=== PATIENT | male | born 1970 | race Caucasian/White ===

== ENCOUNTER → 2022-03-15 | Outpatient (CLI) | payer SELFPAY | END | disposition home or self-care (01) | LOC: SL 11:54 | PROVIDERS: Visit Provider Psychiatry & Neurology Neurology | DX: R69 Illness, unspecified (principal) ==

== ENCOUNTER 2025-04-25 20:44 | Inpatient (IN) | payer OTHER, SELFPAY ==
[2025-04-25 20:45] VITALS: BP 118/82; PULSE 99; RESP 16; TEMP 37.1; O2SAT 95; BMI 31.5
[2025-04-25 22:08] LABS: Hematocrit 42.0 % (40-54); Hemoglobin 14.8 g/dL (13.0-16.5); Immature Granulocytes Count 0.040 X10^3/uL (0.0-0.0); Mean Corp Hgb Conc 35.2 g/dL (32-36); Mean Corpuscular Volume 94.2 fL (80-94); Mean Platelet Vol. 10.1 fl (6.2-12.0); NRBC Flagged by Analyzer 0 % (0-5); Platelet Count 187 K/mm3 (150-450); RBC Distribution Width CV 12.3 % (11.6-14.6); RBC Distribution Width SD 42.7 fl (35.1-43.9); Red Blood Count 4.46 M/mm3 (4.6-6.2); White Blood Count 11.9 K/mm3 (4.4-11.0)
[2025-04-25 22:45] VITALS: BP 130/83; PULSE 84; RESP 18; O2SAT 93
[2025-04-25 22:53] LABS: AST(SGOT) 42 U/L (<=37); Alanine Aminotransfer ALT/SGPT 67 U/L (<=46); Albumin, Serum 4.3 g/dL (3.5-5.0); Alkaline Phosphatase 101 U/L (40-129); Anion Gap 14 (5-15); BUN 13 mg/dL (4-19); BUN/Creat Ratio 13.3 RATIO (10-20); Calcium,Total 9.6 mg/dL (7.6-11.0); Carbon Dioxide 21.4 mmol/L (21.0-32.0); Chloride 99 mmol/L (98-108); Estimated Creatinine Clearance 100.55 ml/min (50-250); Globulin 3.5 g/dL (2.2-4.2); Glucose 95 mg/dL (70-99); Lipase 14 U/L (13-75); Potassium 3.7 mmol/L (3.3-5.1)
--- NOTE | 2025-04-25 23:06 | EX.ED.DYSGE1 ---
HPI History of Present Illness Chief Complaint: Abd Pain Narrative Narrative: Chief complaint and HPI: Diverticulitis. 54-year-old male with no significant past medical history presents for evaluation of microperforated diverticulitis. Patient states for the past week he has been having left lower quadrant abdominal pain. Associated symptom is diarrhea and decreased appetite. Had an outpatient CT performed with his PCP. Showed diverticulitis with microperforation. No abscess. Patient was sent to emergency department. He denies any fever, chills, nausea, vomiting. States his abdominal pain is currently minimal. Review of systems: See HPI Medications: As listed on the chart Allergies: As listed on the chart PFSH: Per chart Vital signs: As listed on the chart. Reviewed. Physical exam: Gen: A&O x3, NAD Head: Normocephalic, atraumatic Eyes: No sclera icterus, conjunctiva clear ENT: Moist mucous membranes Neck: Trachea midline, No JVD CV: RRR, no murmurs, no peripheral edema Resp: Lungs CTA BL, no w/r/c GI: Abd soft, non-distended, mildly tender to palpation in the left lower quadrant, no r/r/g Musc: Full ROM, no deformity Skin: Warm, dry Neuro: Alert, oriented, grossly intact, sensation intact Psych: Cooperative, appropriate mood and affect [facility] Medical History (Updated 04/25/25 @ 22:22 by Nan Louis) UTI (urinary tract infection) CVA (cerebral vascular accident) Diverticulitis Home Medications ?Medication ?Instructions ?Recorded ?Last Taken ?Type aspirin 25 mg-dipyridamole 200 mg 1 cap PO BID 04/25/25 Unknown History capsule,ext.release 12 hr multiphase Allergy/AdvReac Type Severity Reaction Status Date / Time No Known Allergies Allergy Verified 04/25/25 20:45 Surgical History no surgical history Social History Smoking Status: Never smoker EXAM Physical Exam Const Vital Signs: 04/25/25 20:45 04/25/25 22:45 Temperature 98.7 F Temperature Source Oral Pulse Rate 99 84 Respiratory Rate 16 18 Blood Pressure 118/82 H 130/83 H Blood Pressure Mean 94 98 Pulse Ox 95 93 Oxygen Delivery Method Room Air Room Air MDM MDM MDM Narrative Medical decision making narrative: 54-year-old male with no significant past medical history presents for evaluation of microperforated diverticulitis. Patient's been having left lower quadrant abdominal pain. States he had an outpatient CT that showed diverticulitis cyst with perforation without abscess. Patient's PCP did call and inform another ER provider that the patient was coming. On presentation, he is endorsing minimal abdominal pain. Patient did not come with a radiology disc although we were told that the images were pushed over. On chart review, I was able to see the imaging. Patient does have diverticulitis with a small area of subcutaneous air suggesting microperforation. This was personally reviewed by myself. NS bolus and Zofran ordered. CBC shows leukocytosis 11.9. No anemia. CMP unremarkable except for mild transaminitis. Patient not endorsing any right upper quadrant abdominal pain. Lipase unremarkable. General surgery consulted. I spoke with Dr. Gandara. Plan is to admit under his service. Patient was updated about the results and confirmed understanding of the plan. Impression: 1. Acute diverticulitis with microperforation 2. Mild transaminitis Lab Data Labs: Laboratory Results - last 24 hr 04/25/25 22:03 WBC 11.9 H RBC 4.46 L Hgb 14.8 Hct 42.0 MCV 94.2 H MCH 33.2 H MCHC 35.2 RDW Std Deviation 42.7 RDW Coeff of Mari 12.3 Plt Count 187 MPV 10.1 Immature Gran % (Auto) 0.300 Neut % (Auto) 73.6 H Lymph % (Auto) 16.4 L Frio % (Auto) 8.7 Eos % (Auto) 0.7 Baso % (Auto) 0.3 Absolute Neuts (auto) 8.7 H Absolute Lymphs (auto) 1.94 Nucleated RBC % 0 Sodium 134 Potassium 3.7 Chloride 99 Carbon Dioxide 21.4 Anion Gap 14 BUN 13 Creatinine 1.00 Estim Creat Clear Calc 100.55 Est GFR (MDRD) Non-Af 89 BUN/Creatinine Ratio 13.3 Glucose 95 Calcium 9.6 Total Bilirubin 0.89 AST 42 H ALT 67 H Alkaline Phosphatase 101 Total Protein 7.8 Albumin 4.3 Globulin 3.5 Albumin/Globulin Ratio 1.2 Lipase 14 Discharge Plan Triage Chief Complaint: Abd Pain ED Provider: Lavelle Tinajero Dx/Rx/DC Orders Prescriptions: No Action aspirin-dipyridamole 25-200 mg capsule, ER multiphase 12 hr 1 cap PO BID Primary Care Provider: Marjorie aSlinas Referrals: Marjorie Salinas, PA [Primary Care Provider] - Print Language: Chinese
--- OUTSIDE RECORDS SUMMARY | 2025-04-25 23:23 | XMS RPT_ITS | CCD ---
Author Organization [facility] Care Team Providers Care Psychological Stress Evaluator Name Role Phone DECLAN, DARIA PAC Admitting Unavailable DECLAN, DARIA PAC Primary Care Unavailable DECLAN, DARIA PAC Attending Unavailable BRADLEY, LAURA Attending Unavailable BRADLEY, LAURA Admitting Unavailable KIRK LAURA Primary Care Unavailable RYAN BASS Admitting Unavailable RYAN BASS Primary Care Unavailable RYAN BASS Attending Unavailable CSERNYIKNICHOLE DO Admitting Unavailable CSERNYIK NICHOLE DO Primary Care Unavailable CSENICHOLE GAN DO Attending Unavailable ELIOT GRECO DO Admitting Unavailable ELIOT GRECO DO Primary Care Unavailable ELIOT GRECO DO Attending Unavailable CHANTAL BARRIENTOS Consulting Unavailable PROVIDER, UNKNOWN Consulting Unavailable PROVIDER, UNKNOWN Consulting Unavailable PROVIDER, UNKNOWN Consulting Unavailable Jasper LEMUS, Zachary Bloom Unavailable Dr. Ryan Bass MD Unavailable Slim Manrique MD Unavailable Mar Ash LPN Unavailable Unavailable Gogoi (scribe), Hemanta Unavailable Unavaila Chantal Lopez MD Unavailable Judy Howe LPN Unavailable Unavailable Jc ALLEN, Mark Unavailable Unavailable Chanelersaugusto ALLEN, Ceci K Unavailable Unavai Marjorie Lamas PA-C Unavailable Marce Garduno LPN Unavailable Unavailab aneudy Ocasio LPN, Consuelo Lyons Unavailable Unavailab aneudy Talbert LPN, Radha Mayes Unavailable Unavaila ble Unavailable Unavailable Ashley Gonzalez LPN Unavailable Unavailabl e Medications Completed/Discontinued Medications Medication Drug Class(es) Dates Sig (Normalized) Sig (Original) 12 hr aspirin 25 mg / dipyridamole 200 mg extended release oral capsule (8 sources) Platelet Aggregation Inhibitor, Nonsteroidal Anti-inflammatory Drug Start: 01-11-2023 End: 04-25-2025 aspirin 25 mg-dipyridamole 200 mg capsule,ext.relea se 12 hr multiphase ; 1 (one) Capsule two times daily for 0 days Quantity: 60 {Capsule} Refills: 0 Ordered: 25-Apr-2025 Start: 11-Jan-2023 End: 25-Apr-2025 Status: Inactive Start: 01-11-2023 take 25-200 mg by mo [facility] every twelve hours Aspirin-Dipyridamole ER 25-200 MG Oral Capsule Extended Release 12 Hour ; 1 (one) Capsule two times daily for 0 days Quantity: 60 {Capsule} Refills: 0 Ordered: 11-Jan-2023 ALLAN Hutchinson Start: 11-Jan-2023 Comment on above: Mail order. cephalexin 500 mg oral capsule (4 sources) Cephalosporin Antibacterial Start: 11-25-19 End: 11-30-19 21 take 2 capsules by mouth twice daily Cephalexin 500 MG Oral Capsule ; 2 (two) Capsule two times daily for 5 days Quantity: 20 {Capsule} Refills: 0 Ordered: 25-Nov-2020 MD Chantal Barrientos Start: 25-Nov-2020 End: 30-Nov-2020 Status: Inactive ciprofloxacin 500 mg oral tablet (4 sources) Quinolone Antimicrobial Start: 10-30-19 24 End: 11-06-19 24 ciprofloxacin 500 mg tablet ; 1 (one) tablet BID for 7 days Quantity: 14 {Tablet} Refills: 0 Ordered: 30-Oct-2023 ALLNA Salinas Start: 30-Oct-2023 End: 06-Nov-2023 Status: Inactive simvastatin 10 mg oral tablet (4 sources) HMG-CoA Reductase Inhibitor ZOCOR, 10MG (Oral Tablet) ; (10 MG) Status: Inactive Problems Active Problems Problem Classification Problem Date Documented Date Episodic/Chronic Abdominal pain (4 sources) Left lower quadrant pain; Translations: [Left lower quadrant pain] 04-25-2025 Episodic Conditions associated with dizziness or vertigo (8 sources) Benign paroxysmal positional vertigo; Translations: [Benign paroxysmal vertigo, unspecified ear] 10-16-2023 Episodic Genitourinary symptoms and ill-defined conditions (8 sources) Urinary symptoms ; Translations: [Unspecified symptoms and signs involving the genitourinary system] 10-16-2023 Episodic Joint disorders and dislocations; trauma-related (3 sources) Anterior dislocation of left humerus, initial encounter; Translations: [Anterior dislocation of left humerus, initial encounter] Onset: 09-14-2022 Episodic Late effects of cerebrovascular disease (3 sources) Unspecified sequelae of cerebral infarction; Translations: [Unspecified sequelae of cerebral infarction] Onset: 12-27-2021 Chronic Open wounds of extremities (8 sources) Laceration of lower limb; Translations: [Laceration without foreign body, right lower leg, initial encounter] 10-16-2023 Episodic Osteoarthritis (12 sources) Osteoarthritis of knee; Translations: [Osteoarthritis of knee, unspecified] 10-16-2023 Chronic Other aftercare (8 sources) Drug indicated; Translations: [Other mcc (current) drug therapy] 05-28-2019 Episodic Other circulatory disease (8 sources) History of cerebrovascular accident; Translations: [Personal history of transient ischemic attack (TIA), and cerebral infarction without residual deficits] 01-11-2023 Episodic Other circulatory disease (8 sources) History of transient ischemic attack; Translations: [Personal history of transient ischemic attack (TIA), and cerebral infarction without residual deficits] 10-16-2023 Episodic Other nutritional; endocrine; and metabolic disorders (8 sources) Body mass index 30+ - obesity; Translations: [Body mass index (BMI) 30.0-30.9, adult] 10-16-2023 Chronic Other nutritional; endocrine; and metabolic disorders (8 sources) Overweight; Translations: [Overweight] 10-16-2023 Episodic Residual codes; unclassified (8 sources) Influenza vaccination declined; Translations: [Immunization not carried out because of patient refusal] 10-16-2023 Episodic Transient cerebral ischemia (20 sources) Transient cerebral ischemia; Translations: [Transient cerebral ischemic attack, unspecified] 10-16-2023 Chronic Unclassified (1 source) CONTACT WITH AND SUSPECTED EXPOSURE TO COVID-19; Translations: [CONTACT WITH AND SUSPECTED EXPOSURE TO COVID-19] Onset: 12-28-2021 Unclassified (4 sources) Follow up for chronic condition - The patient is here for follow-up of other condition(s) (TIA). The patient always takes the prescribed medications. No side effects noted. The patient has an active lifestyle but no regular exercise program. The patient's out of office blood pressure checks occur rarely. The patient states that they do not have headaches. The patient states that the disease has no overall impact. 01-11-2023 Unclassified (4 sources) Follow Up for Multiple Chronic Conditions - The patient is here for follow-up of other condition(s) (Transient Ischemic Attacks.). The patient always takes the prescribed medications. No side effects noted. The patient has an active lifestyle but no regular exercise program. The patient's out of office blood pressure checks occur rarely and dietary compliance is fair often eating foods not normally recommended. The patient states that there is no recent angina or dyspnea, there are no vision changes or weakness, weight has increased (up 2# from last visit. Last rtn exam was 2015.) and they do not have headaches. The patient states that the disease has no overall impact. Note for Multiple chronic conditions follow-up: He has a small PFO but no other etiology was found. He is maintained on agrrenox. 11-27-2017 Past or Other Problems Problem Classification Problem Date Documented Da te Episodic/Chronic Unclassified (4 sources) UTI - Symptoms include dysuria and urinary urgency. Onset was sudden 1 day(s) ago. There is no known event that preceded symptom onset. The symptoms occur constantly. The patient describes this as moderate in severity and worsening. Associated symptoms include fever. Note for UTI: Denies any cold symptoms. No back pain, no scrotal pain.No similar symptoms to this but has noticed changes in his urinary habits over the past year. 10-16-2023 Unclassified (4 sources) laceration - pt cut his right thigh today- around 1:30 pmpt was using a saw to cut cardboard and it just hit his legpt says its not painful just stings a little 11-25-2020 Unclassified (4 sources) wants check up - pt had headache and dizzy spell about a week, week and a half ago pt states it lasted a couple minutes - no symptoms now but did have a headache for a few daysbut with his history of stroke he wants checked outpt may also want referral for a new nuerologist 05-28-2019 Unclassified (4 sources) [facility] Routine Follow up - The patient is here for follow-up of TIA (Last rtn visit 07/27/15. No recent labs.). The patient always takes the prescribed medications. No side effects noted. The patient engages in regular program 1-3 time(s) per week. The patient's out of office blood pressure checks occur rarely and dietary compliance is fairly good usually adhering to recommendations. The patient states that breathing effort is stable, there is no recent angina or dyspnea, there are no vision changes or weakness, pain is worse (right knee pain), weight has increased (10#), mood is unchanged and they do not have headaches. 07-05-2016 Unclassified (4 sources) Routine for Refills - No concerns of anything today. Feeling great. History of TIA on Aggrenox. Tolerating the medication well at this time. Refills needed. 07-28-2015 Unclassified (4 sources) follow up - Pt is here for follow up TIA in 2010, he needs a refill on his aggrenox. Pt has no concerns at this time, is feeling good. 05-19-2014 Unclassified (4 sources) Follow up consultation - The patient is here to follow-up after hospitalization (to ER at [facility] than pt went to [place] [facility] than admitted due to TIA pt is on Aggrenox pt would like to switch to Plavix due to expense.) on : (January see emr). Follow up visit with no current symptoms. There is a family history of other condition(s) (hemophilia). Past medical history includes other condition(s) (TIA pt had a CVA 15 yrs ago). 02-09-2011 Unclassified (2 sources) Abdominal pain - The onset of the abdominal pain has been gradual and has been occurring in an intermittent pattern for 1 week. The course has been recurrent. The pain is described as a moderate dull ache and fullness. The pain is located in the left upper quadrant and left lower quadrant and does not radiate. The symptoms have no aggravating factors but have no relieving factors. The symptoms have been associated with bloating, diarrhea and fever (feels warm). Note for Abdominal pain: Patient states some back stiffness as well but unsure if related to initial concern.No nausea or vomiting. Decreased appetite.No urinary symptoms other than frequent urination - but admits to drinking more water.Has never had a colonoscopy. Grandpa had colon cancer and grandma had an cancer in GI tract. Nephew also had a cancer in GI tract.No blood in stool.Has had these symptoms intermittently over time but it resolves on its own. 04-25-2025 Results Test Name Value Interpretation Reference Range [facility] Laboratory - Chemistry and C hemistry - challengeon 04-25-2025 Bilirubin Ql (U) Negative Normal [facility] [employer].; RF Code. Ketones Ql (U) Negative Normal [facility] [employer].; RF Code. pH (U) 6.0 [pH] Normal RF Code.; RF Code. Specific gravity (U) [Rel density] 1.015 Normal [employer]; RF Code. Urobilinogen Qn (U) 0.2 mg/dL Normal [facility] Guided Interventions.; RF Code. Laboratory - Hematology and Cell countson 04-25-2025 Hemoglobin Ql (U) small Abnormal [employer].; RF Code. Laboratory - Specimen inform ationon 04-25-2025 Appearance (U) Clear Normal [facility] Dream Dinners; RF Code. Color (U) dark Yellow Normal RF Code.; RF Code. Laboratory - Urinalysison Glucose Test strip (U) [Mass/Vol] Negative Normal [employer].; RF Code. Leukocyte esterase Test strip Ql (U) Negative Normal [employer].; [employer]. Nitrite Ql (U) Negative Normal [facility] [employer].; RF Code. Protein Ql (U) trace Normal [facility] [employer].; RF Code. Laboratory - Chemistry and C hemistry - challengeon 10-16-2023 Bilirubin Ql (U) small Abnormal [facility] [employer].; RF Code. Ketones Ql (U) trace Normal [facility] [employer].; RF Code. pH (U) 6.0 [pH] Normal RF Code.; [employer]. Specific gravity (U) [Rel density] 1.025 Normal [facility] [employer]. Urobilinogen Qn (U) 0.2 mg/dL Normal [facility].; [employer]. Laboratory - Hematology and Cell countson 10-16-2023 Hemoglobin Ql (U) moderate Abnormal [facility].; [employer]. Laboratory - Specimen inform ationon 10-16-2023 Appearance (U) cloudy Abnormal [facility] Gimmie [facility].; [employer]. Color (U) red Abnormal [employer] [facility].; [employer]. Laboratory - Urinalysison Glucose Test strip (U) [Mass/Vol] Negative Normal [facility].; [employer]. Leukocyte esterase Test strip Ql (U) small Abnormal [facility]; [employer]. Nitrite Ql (U) Positive Abnormal [facility] [employer].; [employer]. Protein Ql (U) 100 mg/dL Abnormal [facility].; [employer]. No Panel Informationon 10-16 CULTURE, URINE, ROUTINE SEE NOTE Abnormal [employer] [facility].; RF Code. EMERGENCY REPORTon 2 EMERGENCY REPORT [facility] EMERGENCY ROOM REPORT NAME ACCOUNT SEX AGE ADMIT DISCHARGE PT MED. RECORD# NUMBER DATE DATE GERSON TOMAS [id number] M [id number] 08/24/22 08/24/22 3 JULIO CÉSAR Beasley [id number] ROOM: ER DATE OF : 1970 DICTATING PHYSICIAN: Nichole Vazquez CHIEF COMPLAINT: Fall. HISTORY OF PRESENT ILLNESS: Mr. Tomas is a 52-year-old male here today with a complaint of a fall. The patient states that he was up on a ladder and fell about 8 to 10 feet. He had no loss of consciousness. He kind of slid down the ladder. No headache. He did bump his head. He has no neck pain. He complains of left shoulder pain. He has had no numbness, tingling or weakness of his extremities. He denies any significant neck or back pain. No loss of consciousness. No chest pain, shortness of breath, or abdominal pain. PAST MEDICAL HISTORY: CVA/TIA 20 years ago. He does take an Aggrenox daily. PAST SURGICAL HISTORY: No recent surgeries. ALLERGIES: No significant medication allergies. FAMILY HISTORY: Reviewed and noncontributory. SOCIAL HISTORY: Negative for tobacco use, alcohol use and drug use. REVIEW OF SYSTEMS: A complete review of systems is otherwise negative except as noted above. PHYSICAL EXAMINATION: GENERAL: This is a 52-year-old male who is alert and oriented x3. He arrives via EMS from the work site with a C-collar in place. He is alert and oriented to person, place, time and purpose. HEENT: He has negative raccoon eyes and negative Angeles sign. No hemotympanum. PERRLA, EOMI. Conjunctivae are clear. HEART: Regular rate and rhythm. No murmur, click, gallop or rub. LUNGS: Lungs are clear to auscultation. No rales, rhonchi or wheeze. ABDOMEN: Palpably soft, nontender and nondistended. No masses, guarding or rebound. EXTREMITIES: No gross long bone deformity x4. He has a noted deformity of the left shoulder with a squared-off deformity and decreased range of motion. I do believe he probably has an anterior dislocation of the left shoulder. The left upper extremity is otherwise neurovascularly intact. There is no pain on palpation of the humerus, elbow, forearm, wrist or hand. Page 1 of 2 JULIO CÉSAR TOMAS Emergency Room Report JULIO CÉSAR TOMAS : 1970 DIAGNOSTIC DATA: The patient had a CT of the head and C-spine, both of which were unremarkable. No acute traumatic injury. The patient had a CBC and a BMP which were unremarkable. X-ray examination of the chest showed no evidence of acute chest injury. No pneumothorax. No obvious rib fractures. X-ray of the left shoulder does reveal a left anterior shoulder dislocation in relation to the glenoid fossa. No evidence of fracture. EMERGENCY DEPARTMENT COURSE AND TREATMENT: The patient consented to closed reduction under conscious sedation. Appropriate risks and benefits were identified. The patient is relatively healthy, with a Mallampati score of 1 and ASA 1. Etomidate 15 mg IV and 50 mcg of fentanyl were given. A time-out was taken before starting the procedure. The patient confirmed his name and reason for being in the hospital and needing to have his left shoulder reduced. Medications were then administered. Closed reduction was successful on the first attempt. Post-reduction x-rays are being obtained. The patient will be discharged home in a sling and swath. The patient will be referred to follow up with Orthopedics in the next 2 to 5 days. The patient was encouraged to return if acutely worse. Ice and elevation to the shoulder as needed for pain. The patient tolerated the conscious sedation well. The patient is awake and alert and ambulatory. DIAGNOSES: 1. Status post accidental fall from ladder. 2. Left shoulder dislocation. 3. Closed reduction under conscious sedation. PLAN/DISPOSITION: The patient will be discharged home in improved and stable condition. Dictated By: Nichole Vazquez DO 08/24/22 18:14 JOB #: [id number] Transcribed By: acosta 08/25/22 16:39 Electronically signed by: Dr. Nichole Vazquez DO 08/30/22 13:30 Page 2 of 2 JULIO CÉSAR TOMAS Emergency Room Report Normal [facility] BMP with eGFRon 08-24-2022 AGE 52 years Normal [facility] Comment on above: Performed By: #### 2 [id number] #### [facility],[address] [place] [address] Anion gap [Moles/Vol] 11 mmol/L Normal 10 - 20 [facility] Comment on above: Performed By: #### 2 [id number] #### [facility],[address] [place] [address] BMP with eGFR Normal [facility] Comment on above: Result Comment: BASI C METABOLIC PANEL Performed By: #### 2 [id number] #### [address] [address] Calcium [Mass/Vol] 9.0 mg/dL Normal 8.5 - 10.1 [facility] Comment on above: Performed By: #### 2 [id number] #### [facility],[address] [place] [address] Chloride [Moles/Vol] 102 mmol/L Normal 98 - 107 [facility] Comment on above: Performed By: #### 2 94708 #### [facility],[address] [place] [address] CO2 [Moles/Vol] 26.8 mmol/L Normal 21.0 - 32.0 [facility] Comment on above: Performed By: #### 2 10190 #### [facility],[address] [place] [address] Creatinine [Mass/Vol] 1.16 mg/dL Normal 0.70 - 1.30 [facility] Comment on above: Performed By: #### 2 [id number] #### [facility],[address] [place] [address] GFR/1.73 sq M.predicted among non-blacks MDRD (S/P/Bld) [Vol rate/Area] mL/min/{1.73_m2} Normal 60 - 999 [facility] Comment on above: Performed By: #### 2 [id number] #### [facility],[address] [place], [place] [id number] Result Comment: ACCO RDING TO THE NATIONAL KIDNEY DISEASE EDUCATION PROGRAM(NKDE), A NORMAL eGFR IS A VALUE GREATER THAN OR EQUAL TO 60 ML/MIN/1.73 SQ METERS. CHRONIC KIDNEY DISEASE: <60mL/MIN/1.73 SQ METERS KIDNEY FAILURE: <15mL/MIN/1.73 SQ METERS THIS TEST SHOULD ONLY BE USED FOR PATIENTS 18 YEARS OF AGE AND OLDER. Glucose [Mass/Vol] 102 mg/dL Normal 74 - 106 [facility] Comment on above: Performed By: #### 2 24257 #### [facility],[address] [place] [address] Potassium [Moles/Vol] 3.5 mmol/L Normal 3.5 - 5.1 [facility] Comment on above: Performed By: #### 2 50105 #### [facility],[address] [place] [address] Sodium [Moles/Vol] 136 mmol/L Normal 136 - 145 [facility] Comment on above: Performed By: #### 2 01739 #### [facility],[address] [place] [address] Urea nitrogen [Mass/Vol] 19 mg/dL High 7 - 18 [facility] Comment on above: Performed By: #### 2 62477 #### [facility],[address] [place] [address] CBC + DIFF DAILYon 2 Baso # 0.00 x10EE3/UL Normal 0.00 - 0.10 [facility] Comment on above: Performed By: #### 2 15400 #### [facility],[address] [place] [address] Basophils/100 WBC (Bld) 0.5 % Normal 0.0 - 2.0 [facility] Comment on above: Performed By: #### 2 31927 #### [facility],[address] [place] [address] CBC + DIFF DAILY Normal [facility] Comment on above: Result Comment: CORRECTED REPORT CBC-COMPLETE BLOOD COUNT Performed By: #### 2 [id number] #### [facility],[address] [place] [address] EO # 0.10 x10EE3/UL Normal 0.00 - 0.50 [facility] Comment on above: Performed By: #### 2 33611 #### [facility],[address] [place] [address] Eosinophils/100 WBC (Bld) 1.2 % Normal 0.0 - 7.0 [facility] Comment on above: Performed By: #### 2 17966 #### [facility],[address] [place] [address] ERROR DUE TO TECH Normal [facility] Comment on above: Performed By: #### 2 19801 #### [facility],[address] [place], [place] [id number] Erythrocyte distribution width (RBC) [Ratio] 13.0 % Normal 12.0 - 15.6 [facility] Comment on above: Performed By: #### 2 04118 #### [facility],[address] [place] [address] Hematocrit (Bld) [Volume fraction] 46.0 % Normal 40.0 - 52.0 [facility] Comment on above: Performed By: #### 2 88713 #### [facility],[address] [place] [address] Hemoglobin (Bld) [Mass/Vol] 15.7 g/dL Normal 13.0 - 17.5 [facility] Comment on above: Performed By: #### 2 37897 #### [facility],[address] [place] [address] Lymph # 2.80 x10EE3/UL Normal 0.80 - 2.80 [facility] Comment on above: Performed By: #### 2 77103 #### [facility],[address] [place] [address] Lymphocytes/100 WBC (Bld) 37.6 % Normal 20.0 - 45.0 [facility] Comment on above: Performed By: #### 2 75959 #### [facility],[address] [place], [place] [id number] MANUAL DIFF N/A Normal [facility] Comment on above: Performed By: #### 2 16197 #### [facility],[address] [place], [place] [id number] MCH (RBC) [Entitic mass] 33 pg Normal 27 - 33 [facility] Comment on above: Performed By: #### 2 96809 #### [facility],[address] [place] [address] MCHC 34 X10 3 Normal 32 - 36 [facility] Comment on above: Performed By: #### 2 04736 #### [facility],[address] [place] [address] MCV (RBC) [Entitic vol] 96 fL Normal 81 - 98 [facility] Comment on above: Performed By: #### 2 51739 #### [facility],[address] [place] [address] Os[place]ola # 0.60 x10EE3/UL Normal 0.20 - 1.00 [facility] Comment on above: Performed By: #### 2 48578 #### [facility],[address] [place] [address] MONOS % 7.7 % Normal 0.0 - 10.0 [facility] Comment on above: Performed By: #### 2 66614 #### [facility],[address] [place] [address] Morphology Julian (Bld) [Interp] N/A Normal [facility] Comment on above: Result Comment: {CD] FOLLOWING RESULTS REPORTED IN ERROR @G] HEMOGLOBIN 15.8 <-- *Previously reported in error 08/24/22.KLS. .dxh8 .718-7 @T] HEMATOCRIT 46.2 <-- *Previously reported in error 08/24/22.KLS. .dxh8 .4544-3 @V] MCV 97 <-- *Previously reported in error 08/24/22.KLS. .dxh8 .787-2 RD] RDW/CV 12.7 <-- *Previously reported in error 08/24/22.KLS. .dxh8 .788-0 @P] PLATELET 198 <-- *Previously reported in error 08/24/22.KLS. .dxh8 .777-3 @N] NEUT % 51.2 <-- *Previously reported in error 08/24/22.KLS. .dxh8 .751-8 @L] LYMPH % 38.9 <-- *Previously reported in error 08/24/22.KLS. .dxh8 .736-9 @M] MONOS % 8.9 <-- *Previously reported in error 08/24/22.KLS. .dxh8 .5905-5 @E] EO % 1.0 <-- *Previously reported in error 08/24/22.KLS. .dxh8 .713-8 @B] BASO % 0.0 <-- *Previously reported in error [facility].KLS. .dxh8 .706-2 N#] Neut # 3.70 <-- *Previously reported in error 08/24/22.KLS. .dxh8 .751-8 M#] [place] # 0.70 <-- *Previously reported in error [facility].KLS. .dxh8 .742-7 Performed By: #### 2 [id number] #### [place] [id number] Neut # 3.90 x10EE3/UL Normal 1.50 - 7.10 [facility] Comment on above: Performed By: #### 2 28886 #### [facility],[address] [place] [address] Neutrophils/100 WBC (Bld) 53.0 % Normal 46.0 - 76.0 [facility] Comment on above: Performed By: #### 2 87333 #### [facility],[address] [place] [address] PLATELET 195 x10EE3/UL Normal 150 - 450 [facility] Comment on above: Performed By: #### 2 57359 #### [facility],[address] [place] [address] Platelet mean volume (Bld) [Entitic vol] 9.3 fL Normal 6.4 - 10.5 [facility] Comment on above: Result Comment: AUTO MATED DIFFERENTIAL Performed By: #### 2 34177 #### [address] [address] RBC 4.79 x 10EE6/UL Normal 4.50 - 6.00 [facility] Comment on above: Performed By: #### 2 39945 #### [address] [address] WBC 7.3 x 10EE3/UL Normal 4.5 - 10.8 [facility] Comment on above: Performed By: #### 2 21642 #### [address] [address] CHEST 1 VIEWon 08-24-2022 CHEST 1 VIEW [place] [address] Patient: JULIO CÉSAR TOMAS Phone#: : 1970 Age: 52 Gender: M Pt. Type: ER Account: [id number] Location: [facility] Ordering: NICHOLE WELSHIK Exam Date: 08/24/2022/14:15 Family Phys: Charge Code: [id number] Physician: Marinette Order #: [id number] Dose#: PROCEDURE: X-RAY CHEST 1 VIEW COMPARISON: None. INDICATIONS: Trauma. FINDINGS: LUNGS: Normal. No significant pulmonary parenchymal abnormalities. VASCULATURE: Normal. Unremarkable pulmonary vasculature. CARDIAC: Normal. No cardiac silhouette abnormality or cardiomegaly. MEDIASTINUM: Normal. No visible mass or adenopathy. PLEURA: Normal. No effusion or pleural thickening. BONES: Normal. No fracture or visible bony lesion. OTHER: Negative. CONCLUSION: No acute disease. Dictated by: Maryjo Torres MD on 08/24/2022 at 14:26 Approved by: Maryjo Torres MD on 08/24/2022 at 14:28 Normal [facility] CT BRAIN W/O CONTRASTon 11-1 CT BRAIN W/O CONTRAST [address] [address] Patient: JULIO CÉSAR TOMAS Phone#: : 1970 Age: 52 Gender: M Pt. Type: ER Account: [id number] Location: 052 Ordering: NICHOLE TAYLOR Exam Date: 08/24/2022/14:01 Family Phys: Charge Code: [id number] Physician: Marinette Order #: [id number] Dose#: PROCEDURE: CT BRAIN WITHOUT CONTRAST COMPARISON: None. INDICATIONS: Trauma. TECHNIQUE: CT images were obtained without contrast material. All CT scans at this facility use dose modulation, iterative reconstruction, and/or weight based dosing when appropriate to reduce radiation dose to as low as reasonably achievable. IV CONTRAST: No IV contrast used,ml TOTAL DOSE: CTDIvol(mGy) FINDINGS: CEREBRUM: No edema, hemorrhage, mass, or inappropriate atrophy. 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 CEREBELLUM: No edema, hemorrhage, or inappropriate atrophy. Right arachnoid cyst measuring 2.7 x 1.4 x 1.9 cm. BRAINSTEM: No edema, hemorrhage, mass, or inappropriate atrophy. CSF SPACES: Ventricles, cisterns, and sulci are appropriate for age. No hydrocephalus, subarachnoid hemorrhage, or mass. SKULL: No mass or other significant visible lesion. SINUSES: Limited views demonstrate no significant mucosal thickening or fluid. ORBITS: Limited views are unremarkable. OTHER: Left frontal scalp soft tissue swelling and stranding. CONCLUSION: 1. No appreciable acute intracranial abnormality. Note: An acute ischemic event or extension of a chronic ischemic process may not be initially evident on CT. 2. Left frontal scalp soft tissue swelling [address] [address] Patient: JULIO CÉSAR TOMAS Phone#: : 1970 Age: 52 Gender: M Pt. Type: ER Account: [id number] Location: 052 Ordering: NICHOLE VAZQUEZ Exam Date: 08/24/2022/14:01 Family Phys: Charge Code: [id number] Physician: Marinette Order #: [id number] Dose#: Dictated by: Maryjo Torres MD on 08/24/2022 at 14:29 Approved by: Maryjo Torres MD on 08/24/2022 at 14:38 Normal [facility] CT CERVICAL W/O CONTRASTon 1 10-24-2021 CT CERVICAL W/O CONTRAST [place] [address] Patient: JULIO CÉSAR TOMAS Phone#: : 1970 Age: 52 Gender: M Pt. Type: ER Account: [id number] Location: 052 Ordering: NICHOLE VAZQUEZ Exam Date: 08/24/2022/14:01 Family Phys: Charge Code: [id number] Physician: Marinette Order #: [id number] Dose#: PROCEDURE: CT CERVICAL WITHOUT CONTRAST COMPARISON: None. INDICATIONS: Trauma. TECHNIQUE: Multi-planar CT images were created without intravenous contrast. All CT scans at this facility use dose modulation, iterative reconstruction, and/or weight based dosing when appropriate to reduce radiation dose to as low as reasonably achievable. IV CONTRAST: No IV contrast used,ml TOTAL DOSE: CTDIvol(mGy) FINDINGS: CRANIOCERVICAL AREA: Normal foramen magnum with no Chiari malformation. PARASPINAL AREA: Normal with no visible mass. BONES: Nondisplaced fracture of the left T1 transverse process, series 18 image 93 and series 17 image 161. The cervical vertebral bodies are maintained in height and alignment. No subluxation. Schmorl's node at the superior endplate of C4. The dens is intact. The lateral masses are symmetric. CERVICAL DISC LEVELS: C2-C3: No significant disc/facet abnormality, spinal stenosis, or foraminal stenosis. C3-C4: Mild disc height loss contributing to at least mild bilateral foraminal narrowing. C4-C5: No significant disc/facet abnormality, spinal stenosis, or foraminal stenosis. C5-C6: No significant disc/facet abnormality, spinal stenosis, or foraminal stenosis. C6-C7: No significant disc/facet abnormality, spinal stenosis, or foraminal stenosis. C7-T1: No significant disc/facet abnormality, spinal stenosis, or foraminal stenosis. CONCLUSION: 1. T1 left transverse process fracture, nondisplaced. [address] [address] Patient: JULIO CÉSAR TOMAS Phone#: : 1970 Age: 52 Gender: M Pt. Type: ER Account: [id number] Location: 052 Ordering: NICHOLE VAZQUEZ Exam Date: 08/24/2022/14:01 Family Phys: Charge Code: [id number] Physician: Marinette Order #: [id number] Dose#: Dictated by: Maryjo Torres MD on 08/24/2022 at 15:04 Approved by: Maryjo Torres MD on 08/24/2022 at 15:11 Normal [facility] SHOULDER COMPLETE LTon 08-24 SHOULDER COMPLETE LT [address] [address] Patient: JULIO CÉSAR TOMAS Phone#: : 1970 Age: 52 Gender: M Pt. Type: ER Account: [id number] Location: 052 Ordering: NICHOLE VAZQUEZ Exam Date: 08/24/2022/17:15 Family Phys: Charge Code: [id number] Physician: Marinette Order #: [id number] Dose#: PROCEDURE: X-RAY SHOULDER LT MIN 2 VIEWS COMPARISON: [facility], XR, SHOULDER LT, 08/24/2022, 14:17. INDICATIONS: Post reduction. FINDINGS: BONES: Interval reduction of the previously identified left shoulder dislocation. There is expected alignment. Defect at the posterior aspect of the humeral head suggests an impaction fracture. SOFT TISSUES: Negative. No visible soft tissue swelling. EFFUSION: None visible. OTHER: Negative. CONCLUSION: 1. Interval reduction of left shoulder dislocation 2. Suspected humeral head impaction fracture. Dictated by: Maryjo Torres MD on 08/24/2022 at 17:33 Approved by: Maryjo Torres MD on 08/24/2022 at 17:34 Normal [facility] SHOULDER COMPLETE LT [place] [address] Patient: JULIO CÉSAR TOMAS Phone#: : 1970 Age: 52 Gender: M Pt. Type: ER Account: [id number] Location: 052 Ordering: NICHOLE VAZQUEZ Exam Date: 08/24/2022/14:17 Family Phys: Charge Code: [id number] Physician: Marinette Order #: [id number] Dose#: PROCEDURE: X-RAY SHOULDER LT MIN 2 VIEWS COMPARISON: None. INDICATIONS: Trauma. FINDINGS: BONES: Anterior left shoulder dislocation. The anterior rim of the humeral head projects anterior and proximal to the glenoid. SOFT TISSUES: Negative. No visible soft tissue swelling. EFFUSION: None visible. OTHER: Negative. CONCLUSION: 1. Anterior left shoulder dislocation Dictated by: Maryjo Torres MD on 08/24/2022 at 14:28 Approved by: Maryjo Torres MD on 08/24/2022 at 14:29 Normal [facility] CORONAVIRUS PCR - [facility] 12-28-2021 SARS-CoV-2 (COVID-19) RNA ENZO+probe Ql (Unsp spec) Negative Normal NORMAL: NEGATIVE [facility] Comment on above: Performed By: #### 2 01438 #### [facility],[address] [place] [address] SEND TO IC? YES Normal [facility] Comment on above: Result Comment: RESU LTS FAXED TO INFECTION CONTROL. SARS-CoV-2 THIS TEST IS BEING USED UNDER THE FDA EUA PROCEDURE. THIS ASSAY HAS BEEN VALIDATED IN THE [facility] FOR USE WITH NASOPHARYNGEAL SPECIMENS IN [facility]. INTERPRETIVE DATA LABORATORY TEST RESULTS SHOULD ALWAYS BE CONSIDERED IN THE CONTEXT OF CLINICAL OBSERVATIONS AND EPIDEMIOLOGICAL DATA IN MAKING FINAL DIAGNOSIS AND PATIENT MANAGEMENT DECISIONS. PATIENT MANAGEMENT SHOULD FOLLOW CURRENT CDC GUIDELINES. A POSITIVE TEST RESULT FOR COVID-19 INDICATES THAT RNA FROM SARS-CoV-2 WAS DETECTED, AND THE PATIENT IS INFECTED WITH THE VIRUS AND PRESUMED TO BE CONTAGIOUS. A NEGATIVE TEST RESULT FOR THIS TEST MEANS THAT SARS-CoV-2 RNA WAS NOT PRESENT IN THE SPECIMEN ABOVE THE LIMIT OF DETECTION. HOWEVER, A NEGATVIE RESULT DOES NOT RULE OUT COVID-19 AND SHOULD NOT BE USED THE SOLE BASIS FOR TREATMENT OR PATIENT MANAGEMENT DECISIONS. A NEGATIVE RESULT DOES NOT EXCLUDE THE POSSIBILITY OF COVID-19. WHEN DIAGNOSTIC TESTING IS NEGATIVE, THE POSSIBLILTY OF A FALSE NEGATIVE RESULT SHOULD BE CONSIDERED IN THE CONTEXT OF A PATIENT'S RECENT EXPOSURES AND THE PRESENCE OF CLINICAL SIGNS AND SYMPTOMS CONSISTENT WITH COVID-19. THE POSSIBILITY OF A FALSE NEGATIVE RESULT SHOULD ESPECIALLY BE CONSIDERED IF THE PATIENT'S RECENT EXPOSURES OR CLINICAL PRESENTATION INDICATE THAT COVID-19 IS LIKELY, AND DIAGNOSTIC TESTS FOR OTHER CAUSES OF ILLNESS (e.g., OTHER RESPIRATORY ILLNESS) ARE NEGATIVE. IF COVID-19 IS STILL SUSPECTED BASED ON EXPOSURE HISTORY TOGETHER WITH OTHER CLINICAL FINDINGS, RE-TESTED SHOULD BE CONSIDERED BY HEALTHCARE PROVIDERS IN CONSULTATION WITH PUBLIC HEALTH AUTHORITIES. Performed By: #### 2 71527 #### [facility],[address] [place], [place] [id number] BMP with eGFRon 12-27-2021 AGE 51 years Normal [facility] Comment on above: Performed By: #### 2 03106 #### [facility],[address] [place] [address] Anion gap [Moles/Vol] 11 mmol/L Normal 10 - 20 [facility] Comment on above: Performed By: #### 2 67233 #### [address] [address] BMP with eGFR Normal [facility] Comment on above: Result Comment: BASI C METABOLIC PANEL Performed By: #### 2 87375 #### [facility],[address] [place] [address] Calcium [Mass/Vol] 8.6 mg/dL Normal 8.5 - 10.1 [facility] Comment on above: Performed By: #### 2 86664 #### [facility],[address] [place] [address] Chloride [Moles/Vol] 108 mmol/L High 98 - 107 [facility] Comment on above: Performed By: #### 2 30665 #### [facility],[address] [place] [address] CO2 [Moles/Vol] 26.7 mmol/L Normal 21.0 - 32.0 [facility] Comment on above: Performed By: #### 2 13490 #### [facility],[address] [place], [place] [id number] Creatinine [Mass/Vol] 1.19 mg/dL Normal 0.70 - 1.30 [facility] Comment on above: Performed By: #### 2 58438 #### [facility],[address] [place], [place] [address] GFR/1.73 sq M.predicted among non-blacks MDRD (S/P/Bld) [Vol rate/Area] mL/min/{1.73_m2} Normal 60 - 999 [facility] Comment on above: Performed By: #### 2 33785 #### [facility],[address] [place] [address] Result Comment: ACCO RDING TO THE NATIONAL KIDNEY DISEASE EDUCATION PROGRAM(NKDE), A NORMAL eGFR IS A VALUE GREATER THAN OR EQUAL TO 60 ML/MIN/1.73 SQ METERS. CHRONIC KIDNEY DISEASE: <60mL/MIN/1.73 SQ METERS KIDNEY FAILURE: <15mL/MIN/1.73 SQ METERS THIS TEST SHOULD ONLY BE USED FOR PATIENTS 18 YEARS OF AGE AND OLDER. Glucose [Mass/Vol] 88 mg/dL Normal 74 - 106 [facility] Comment on above: Performed By: #### 2 25517 #### [facility],[address] [place] [address] Potassium [Moles/Vol] 4.1 mmol/L Normal 3.5 - 5.1 [facility] Comment on above: Performed By: #### 2 80597 #### [facility],[address] [place] [address] Sodium [Moles/Vol] 142 mmol/L Normal 136 - 145 [facility] Comment on above: Performed By: #### 2 24017 #### [facility],[address] [place] [address] Urea nitrogen [Mass/Vol] 18 mg/dL Normal 7 - 18 [facility] Comment on above: Performed By: #### 2 79002 #### [facility],[address] [place] [address] LIPID PROFILEon 12-27-2021 Cholesterol [Mass/Vol] 157 mg/dL Normal 0 - 240 [facility] Comment on above: Performed By: #### 2 95521 #### [facility],[address] [place] [address] Cholesterol in HDL [Mass/Vol] 43 mg/dL Normal 40 - 60 [facility] Comment on above: Performed By: #### 2 14188 #### [facility],[address] [place] [address] Cholesterol in LDL [Mass/Vol] 82 mg/dL Normal 0 - 129 [facility] Comment on above: Performed By: #### 2 92913 #### [facility],[address] [place] [address] Cholesterol.total/C holesterol in HDL [Mass ratio] 3.7 {ratio} Normal 0.0 - 5.0 [facility] Comment on above: Performed By: #### 2 19000 #### [facility],[address] [place] [address] Lipid 1996 panel Normal [facility] Comment on above: Result Comment: LIPI D PROFILE Performed By: #### 2 44173 #### [facility],[address] [place] [address] Triglyceride [Mass/Vol] 161 mg/dL High 0 - 150 [facility] Comment on above: Performed By: #### 2 47388 #### [facility],[address] [place] [address] Coronavirus 2019on COVID 19 Result GLUE SPREADER Normal Negative for COVID19 (SARS CoV2) by PCR. [facility] Comment on above: Result Comment: Nega tive for This test was developed and its performance characteristics determined by [facility] [place]. This test has been authorized by FDA under an Emergency Use Authorization (EUA). This test has been validated in accordance with the FDA's Guidance Document Policy for Diagnostics Testing in Laboratories Certified to Perform High Complexity Testing under CLIA prior to Emergency use Authorization for Coronavirus Disease 2019 during the Public Health Emergency issued on December 07, 2019. COVID19 (SARS This test was developed and its performance characteristics determined by [facility] [place]. This test has been authorized by FDA under an Emergency Use Authorization (EUA). This test has been validated in accordance with the FDA's Guidance Document Policy for Diagnostics Testing in Laboratories Certified to Perform High Complexity Testing under CLIA prior to Emergency use Authorization for Coronavirus Disease 2019 during the Public Health Emergency issued on December 07, 2019. CoV2) by PCR. This test was developed and its performance characteristics determined by [facility] [place]. This test has been authorized by FDA under an Emergency Use Authorization (EUA). This test has been validated in accordance with the FDA's Guidance Document Policy for Diagnostics Testing in Laboratories Certified to Perform High Complexity Testing under CLIA prior to Emergency use Authorization for Coronavirus Disease 2019 during the Public Health Emergency issued on December 07, 2019. COVID 19 Source GLUE SPREADER GLUE SPREADER Normal [facility] Vital Signs Date Time Vital Sign Value Performing Clinician Irish corrigan 04-25-2025 15:07-0400 Body height 182.88 cm Ashley Gonzalez LPN [facility], [facility]. 04-25-2025 15:07-0400 Body mass index (BMI) [Ratio] 31.06 kg/m2 Ashley Gonzalez LAND MANAGEMENT SUPERVISOR [facility], [facility]. 04-25-2025 15:07-0400 Body surface area Derived from formula 2.26 m2 Ashley Gonzalez [facility], [facility].; [facility] 04-25-2025 15:07-0400 Body temperature 99.5 [degF] Ashley Gonzalez [facility], [facility].; [facility] Comment on above: Method: Tympanic 04-25-2025 15:07-0400 Body weight 103.87 kg Ashley Gonzalez [facility], [facility]. 04-25-2025 15:07-0400 Diastolic blood pressure 74 mm[Hg] Ashley Gonzalez [facility], [facility].; [facility] [employer] Comment on above: Patient Position: Sitting; Cuff Location : Left Arm; Cuff Size: Standard 04-25-2025 15:07-0400 Heart rate 80 /min Ashley Gonzalez [facility] Comment on above: Pattern: Regular 04-25-2025 15:07-0400 Systolic blood pressure 116 mm[Hg] [facility], [facility].; [facility] Comment on above: Patient Position: Sitting; Cuff Location : Left Arm; Cuff Size: Standard 10-16-2023 09:32-0500 Body height 182.88 cm Consuelo Ocasio LAND MANAGEMENT SUPERVISOR [facility], [facility].; [facility], [facility]. 10-16-2023 09:32-0500 Body mass index (BMI) [Ratio] 30.24 kg/m2 Consuelo Ocasio [facility], [facility].; [facility], [facility]. 10-16-2023 09:32-0500 Body surface area Derived from formula 2.23 m2 Consuelo Ocasio LAND MANAGEMENT SUPERVISOR [facility], [facility].; [facility], [facility]. 10-16-2023 09:32-0500 Body temperature 99.8 [degF] Consuelo Ocasio [facility] [employer]. Comment on above: Method: Tympanic 10-16-2023 09:32-0500 Body weight 101.15 kg Consuelo Lyons Amarjit ALLEN [facility] 10-16-2023 09:32-0500 Diastolic blood pressure 82 mm[Hg] Consuelo Lyons Amarjit ALLEN [facility] [employer] Comment on above: Patient Position: Sitting; Cuff Location : Right Arm; Cuff Size: Standard 10-16-2023 09:32-0500 Heart rate 101 /min Consuelo Lyons Amarjit ALLEN [facility] [employer] Comment on above: Pattern: Regular 10-16-2023 09:32-0500 Systolic blood pressure 128 mm[Hg] Consuelo M Amarjit ALLEN [facility] [employer] Comment on above: Patient Position: Sitting; Cuff Location : Right Arm; Cuff Size: Standard 01-11-2023 08:51-0400 Body weight 100.25 kg Mark Greene LPN [facility] 01-11-2023 08:51-0400 Diastolic blood pressure 84 mm[Hg] Mark Greene LPN [facility] [employer] Comment on above: Patient Position: Sitting; Cuff Location : Left Arm; Cuff Size: Standard 01-11-2023 08:51-0400 Heart rate 87 /min Mark Greene LPN [facility] [employer] [employer]. Comment on above: Pattern: Regular 01-11-2023 08:51-0400 Systolic blood pressure 118 mm[Hg] Mark Greene LPN [facility] [employer] [employer]. Comment on above: Patient Position: Sitting; Cuff Location : Left Arm; Cuff Size: Standard 11-25-2020 14:38-0500 Body height 182.88 cm Judy Howe LPN [facility] [employer] [employer]. 11-25-2020 14:38-0500 Body mass index (BMI) [Ratio] 30.11 kg/m2 Judy Howe LPN [facility] [employer] [facility], [facility]. 11-25-2020 14:38-0500 Body surface area Derived from formula 2.23 m2 Judy Howe LPN [facility] [employer] 11-25-2020 14:38-0500 Body weight 100.7 kg Judy Howe LPN [facility] [employer] 11-25-2020 14:38-0500 Diastolic blood pressure 77 mm[Hg] Judy Howe LPN [facility], [facility].; [employer] [employer]. Comment on above: Patient Position: Sitting; Cuff Location : Left Arm; Cuff Size: Standard 11-25-2020 14:38-0500 Heart rate 98 /min Judy Howe LPN [facility] [employer] Comment on above: Pattern: Regular 11-25-2020 14:38-0500 Systolic blood pressure 121 mm[Hg] Judy Howe LPN [facility] [employer] [employer]. Comment on above: Patient Position: Sitting; Cuff Location : Left Arm; Cuff Size: Standard 05-28-2019 08:21-0400 Body height 182.88 cm Judy Howe LPN [facility] [employer] 05-28-2019 08:21-0400 Body mass index (BMI) [Ratio] 29.7 kg/m2 Judy Howe LPN [facility] [employer] 05-28-2019 08:21-0400 Body surface area Derived from formula 2.21 m2 Judy Howe LPN [facility], [facility].; [employer] [employer]. 05-28-2019 08:21-0400 Body weight 99.34 kg Judy Howe LPN [facility], [facility].; [employer] [employer]. 05-28-2019 08:21-0400 Diastolic blood pressure 86 mm[Hg] Judy Howe LPN [facility] [employer] [employer] [employer]. Comment on above: Patient Position: Sitting; Cuff Location : Left Arm; Cuff Size: Standard 05-28-2019 08:21-0400 Heart rate 92 /min Judy Howe TIFFANY [facility] [employer] [employer]. Comment on above: Pattern: Regular 05-28-2019 08:21-0400 Systolic blood pressure 125 mm[Hg] Judy Howe LAND MANAGEMENT SUPERVISOR [facility] [employer] [employer]. Comment on above: Patient Position: Sitting; Cuff Location : Left Arm; Cuff Size: Standard 11-27-2017 10:07-0500 Body height 182.88 cm [facility] [employer] [facility]. 11-27-2017 10:07-0500 Body mass index (BMI) [Ratio] 30.11 kg/m2 Mar Ash [facility] [employer] [employer] [facility]. 11-27-2017 10:07-0500 Body surface area Derived from formula 2.23 m2 Mar Ash LAND MANAGEMENT SUPERVISOR [facility] [employer] 11-27-2017 10:07-0500 Body weight 100.7 kg Mar [facility] [employer] [facility]. 11-27-2017 10:07-0500 Diastolic blood pressure 76 mm[Hg] [facility] [employer] [facility]. Comment on above: Patient Position: Sitting; Cuff Location : Left Arm; Cuff Size: Standard 11-27-2017 10:07-0500 Heart rate 87 /min Mar Ash LPN [facility] [facility] [employer]. Comment on above: Pattern: Regular 11-27-2017 10:07-0500 Systolic blood pressure 120 mm[Hg] Mar Ash LPN [employer]. Comment on above: Patient Position: Sitting; Cuff Location : Left Arm; Cuff Size: Standard 07-04-2016 16:22-0400 Body height 182.88 cm Radha Talbert LAND MANAGEMENT SUPERVISOR [employer] [facility] [employer] 07-04-2016 16:22-0400 Body mass index (BMI) [Ratio] 29.84 kg/m2 Radha Talbert LAND MANAGEMENT SUPERVISOR [facility] [employer] [facility], [facility]. 07-04-2016 16:22-0400 Body surface area Derived from formula 2.22 m2 Radha Gerber Talbert LAND MANAGEMENT SUPERVISOR [facility], [facility].; [employer], [facility]. 07-04-2016 16:22-0400 Body weight 99.79 kg Radha Gerber Talbert LPN [facility], [facility].; [employer], [facility]. 07-04-2016 16:22-0400 Diastolic blood pressure 80 mm[Hg] Radha Gerber Talbert LPN [facility], [facility].; [employer], [employer]. Comment on above: Patient Position: Sitting; Cuff Location : Left Arm; Cuff Size: Large 07-04-2016 16:22-0400 Heart rate 85 /min Radhamazin Talbert LAND MANAGEMENT SUPERVISOR [facility], [facility].; [employer], [employer]. Comment on above: Pattern: Regular 07-04-2016 16:22-0400 Systolic blood pressure 133 mm[Hg] Radha Gerber Talbert LAND MANAGEMENT SUPERVISOR [facility], [facility].; [employer], [employer]. Comment on above: Patient Position: Sitting; Cuff Location : Left Arm; Cuff Size: Large 07-27-2015 15:58-0400 Body height 182.88 cm Ceci Jeet Mutersbaugh LAND MANAGEMENT SUPERVISOR [facility], [facility].; [employer], [facility]. 07-27-2015 15:58-0400 Body mass index (BMI) [Ratio] 28.48 kg/m2 Ceci K Mutersbaugh LAND MANAGEMENT SUPERVISOR [facility], [facility].; [employer], [facility]. 07-27-2015 15:58-0400 Body surface area Derived from formula 2.18 m2 Ceci K Mutersbaugh LAND MANAGEMENT SUPERVISOR [employer] [facility], [facility].; [employer], [employer]. 07-27-2015 15:58-0400 Body weight 95.26 kg Ceci K Mutersbaugh LAND MANAGEMENT SUPERVISOR [employer] [facility], [facility].; [employer], [employer]. 07-27-2015 15:58-0400 Diastolic blood pressure 80 mm[Hg] Ceci K Mutersbaugh LAND MANAGEMENT SUPERVISOR [facility], [facility].; [employer], [employer]. Comment on above: Patient Position: Sitting; Cuff Location : Left Arm; Cuff Size: Standard 07-27-2015 15:58-0400 Heart rate 90 /min Ceci Cardenasbaugh LAND MANAGEMENT SUPERVISOR [facility], [employer]. Comment on above: Pattern: Regular 07-27-2015 15:58-0400 Systolic blood pressure 127 mm[Hg] Ceci Jeet Buchananersbaugh LAND MANAGEMENT SUPERVISOR [facility] [employer], [employer]. Comment on above: Patient Position: Sitting; Cuff Location : Left Arm; Cuff Size: Standard 05-19-2014 08:04-0400 Body height 182.88 cm [facility]o [facility]ons [facility] [employer]. 05-19-2014 08:04-0400 Body mass index (BMI) [Ratio] 29.7 kg/m2 Consuelo [facility]ons [facility] [employer], [employer]. 05-19-2014 08:04-0400 Body surface area Derived from formula 2.[address] [facility] [employer], [employer]. 05-19-2014 08:04-0400 Body weight 99.34 kg Consuelo M [facility], [employer]. 05-19-2014 08:04-0400 Diastolic blood pressure 78 mm[Hg] Consuelo Felicianoach [facility] [employer]. Comment on above: Patient Position: Sitting; Cuff Location : Left Arm; Cuff Size: Standard 05-19-2014 08:04-0400 Heart rate 88 /min Consuelo Felicianoach [facility], [employer]. Comment on above: Pattern: Regular 05-19-2014 08:04-0400 Systolic blood pressure 123 mm[Hg] Consuelo Felicianoach [facility], [employer]. Comment on above: Patient Position: Sitting; Cuff Location : Left Arm; Cuff Size: Standard 02-09-2011 11:20-0400 Body height 180.34 cm Zachary Hutchinson PA-C Work Phone: [employer]. 02-09-2011 11:20-0400 Body mass index (BMI) [Ratio] 27.2 kg/m2 Luke Jasper PA-C Work Phone: [employer]. 02-09-2011 11:20-0400 Body surface area Derived from formula 2.09 m2 Luke Jasper PA-C Work Phone: [employer]. 02-09-2011 11:20-0400 Body weight 88.45 kg Luke Jasper PA-C Work Phone: [employer]. 02-09-2011 11:20-0400 Diastolic blood pressure 74 mm[Hg] Luke Jasper PA-C Work Phone: [employer]; [employer]. Comment on above: Patient Position: Sitting; Cuff Location : Left Arm; Cuff Size: Large 02-09-2011 11:20-0400 Heart rate 96 /min Luke Jasper PA-C Work Phone: [employer]; [employer]. Comment on above: Pattern: Regular 02-09-2011 11:20-0400 Systolic blood pressure 111 mm[Hg] Luke Jasper PA-C Work Phone: [employer]; [employer]. Comment on above: Patient Position: Sitting; Cuff Location : Left Arm; Cuff Size: Large Encounters Encounter Date Encounter Type Care Provider Facility Start: 04-25-2025 End: 04-25-2025 Office outpatient visit 15 minutes Luke Jasper PA-C Work Phone: [employer] Start: 04-25-2025 Review Luke Hochstetl er PA-C Work Phone: [employer]. Start: 10-16-2023 End: 10-16-2023 Office outpatient visit 15 minutes Luke Jasper PA-C Work Phone: [employer]. Start: 01-11-2023 End: 01-11-2023 Office outpatient visit 15 minutes Luke Jasper PA-C Work Phone: [employer]. Start: 09-14-2022 End: 09-15-2022 ambulatory DARIA MANRIQUEZ [facility] Start: 08-24-2022 ambulatory ELIOT CANDELARIO [facility] Start: 08-24-2022 End: 08-24-2022 Emergency department patient visit NICHOLE PRABHAKARPAANDRE [facility] Start: 03-15-2022 End: 03-15-2022 Patient encounter procedure [facility] Start: 12-28-2021 End: 12-28-2021 ambulatory LAURA [facility] Start: 12-27-2021 End: 12-27-2021 ambulatory RYAN BASS [facility] Start: 03-24-2021 End: 03-24-2021 Telephone follow-up Luke Jasper PA-C Work Phone: [employer]. Start: 11-25-2020 End: 11-25-2020 Patient encounter procedure Luke Jasper PA-C Work Phone: [employer] Start: 05-28-2019 End: 05-28-2019 Office outpatient visit 15 minutes Luke Jasper PA-C Work Phone: [employer]. Start: 11-27-2017 End: 11-27-2017 Office outpatient visit 15 minutes Luke Jasper PA-C Work Phone: [employer] Start: 07-04-2016 End: 07-05-2016 Patient encounter procedure Luke Jasper PA-C Work Phone: [employer] Start: 07-27-2015 End: 07-28-2015 Office outpatient visit 15 minutes Luke Jasper PA-C Work Phone: [employer] Start: 05-19-2014 End: 05-19-2014 Patient encounter procedure Zachary RichJasper PA-C Work Phone: [employer] Start: 12-05-2011 End: 12-05-2011 Medication Zachary Coyleetler PA-C Work Phone: [employer] Start: 02-09-2011 End: 02-09-2011 Patient encounter procedure Zachary Coyleetler PA-C Work Phone: [employer] Procedures Date Procedure Procedure Detail Performing Clinician Start: 10-16-2023 End: 10-16-2023 Ceftriaxone sodium injection Marjorie TO-C Work Phone: Start: 11-25-2020 End: 11-25-2020 Simple repair scalp/neck/ax/genit/trunk 2.5cm/< Chantal Barrientos MD Work Phone: Start: 11-27-2017 End: 11-27-2017 Body mass index documented Slim Manrique MD Work Phone: Plan of Treatment Date Care Activity Detail Author Start: 04-25-2025 Culture bacterial quanttative colony count urine Urine Culture ([id number]) Start: 25-Apr-2025 15:47-04:00 Request [employer]; [employer] Start: 04-25-2025 Ct abdomen & pelvis w/o contrst 1/> body re Abdomen/Pelvis CT W/O Contrast & W/ Contrast per protocol ([id number]) Start: 25-Apr-2025 Intent Comments: Call Asif Salinas at [facility] and call [employer]; [employer] Comment on above: Call Asif Salinas at [facility] - hold and call Payers Date Payer Category Payer Unknown [id number] 1970 Unknown [id number] 1970 Unknown [id number] Self-pay SELF PAY INSURANCE [id number] Unknown 197 Social History Date Type Detail Facility Tobacco smoking status NHIS Unknown if ever smoked [facility] Work Phone: Start: 1970 Sex Assigned At Male [facility] Work Phone: Caffeine Use Caffeine Use [employer]; [employer] Tobacco smoking consumption unknown [facility]; [employer] Work Phone: Evaluation note Note Date & Type Note Facility Evaluation note No assessment information availa ble [facility] Work Phone: Summary Purpose Family History No Family History Records FoundNo Family History Records Found Advance Directives No Advanced Directives Records FoundNo Advanced Directives Records Found Chief Complaint and Reason for Visit Chief Complaint AEROPHAGIA Additional Source Comments (unrecognized sect ion and content) No Status Records FoundNo Status Records Found INFORMATION SOURCE (unrecogn ized section and content) DATE CREATED AUTHOR 12/04/2020 [facility] DATE CREATED AUTHOR AUTHOR'S EDITH GREY 09/15/2022 [facility] Goals (unrecognized section and content) Goals may be documented in a n alternate section FOR RECORDS PERTAINING TO PATIENTS WHO ARE OR HAVE BEEN ENROLLED IN A CHEMICAL DEPENDENCY/SUBSTANCEABUSE PROGRAM, SOME INFORMATION MAY BE OMITTED. This clinical summary was aggregated from multiple sources. Caution should be exercised in using it in the provision of clinical care. This summary normalizes information from multiple sources, and as a consequence, information in this document may materially change the coding, format and clinical context of patient data. In addition, data may be omitted in some cases. CLINICAL DECISIONS SHOULD BE BASED ON THE PRIMARY CLINICAL RECORDS. [employer] provides no warranty or guarantee of the accuracy or completeness of information in this document.
[2025-04-25] MEDS: Piperacil/Tazobactam 3.375 GM in 0.9% Normal Saline (50mL MB+) 50 ML IV (23:29)
[2025-04-25] MEDS: 0.9% Normal Saline (1000mL) 1,000 ML 1000 ML IV (23:29)
--- OUTSIDE RECORDS SUMMARY | 2025-04-25 23:33 | XMS RPT_ITS | CCD ---
Author Organization [facility] CliniSymo Care Team Providers Care Roll Operator Name Role Phone DECLAN, DARIA PAC Admitting [...] Consulting Unavailable Jasper LEMUS, Zachary Bloom Unavailable [phone] Ryan Bass MD Unavailable [phone] Slim Manrique MD Unavailable Mar Ash LPN [...] Start: 01-11-2023 take 25-200 mg by [facility] every twelve hours Aspirin-Dipyridamole ER 25-200 MG [...] Quantity: 14 {Tablet} Refills: 0 Ordered: 30-Oct-2023 ALLAN Salinas Start: 30-Oct-2023 End: 06-Nov-2023 Status: Inactive [...] a new nuerologist 05-28-2019 Unclassified (4 sources) [facility] Routine Follow up - The patient [...] to follow-up after hospitalization (to ER at [facility] than pt went to [place] [facility] than admitted due to TIA pt [...] Results Test Name Value Interpretation Reference Range [facility] Laboratory - Chemistry and C hemistry - challengeon 04-25-2025 Bilirubin Ql (U) Negative Normal [facility] [employer].; Sold. Ketones Ql (U) Negative Normal [facility] [employer].; Sold. pH (U) 6.0 [pH] Normal Sold.; Sold. Specific gravity (U) [Rel density] 1.015 Normal [employer]; Sold. Urobilinogen Qn (U) 0.2 mg/dL Normal [facility] [employer].; Sold. Laboratory - Hematology and Cell countson 04-25-2025 Hemoglobin Ql (U) small Abnormal [employer].; Sold. Laboratory - Specimen inform ationon 04-25-2025 Appearance (U) Clear Normal [facility] [employer]; Sold. Color (U) dark Yellow Normal Sold.; Sold. Laboratory - Urinalysison Glucose Test strip (U) [Mass/Vol] Negative Normal [employer].; Sold. Leukocyte esterase Test strip Ql (U) Negative Normal [employer].; [employer], [employer]. Nitrite Ql (U) Negative Normal [facility] [employer].; Sold. Protein Ql (U) trace Normal [facility] [employer].; Sold. Laboratory - Chemistry and C hemistry - challengeon 10-16-2023 Bilirubin Ql (U) small Abnormal [facility] [employer].; Sold. Ketones Ql (U) trace Normal [facility] [employer].; Sold. pH (U) 6.0 [pH] Normal Sold.; [employer]. Specific gravity (U) [Rel density] 1.025 Normal [facility] [employer]. Urobilinogen Qn (U) 0.2 mg/dL Normal [facility].; [employer]. Laboratory - Hematology and Cell countson 10-16-2023 Hemoglobin Ql (U) moderate Abnormal [facility].; [employer]. Laboratory - Specimen inform ationon 10-16-2023 Appearance (U) cloudy Abnormal [facility] [employer] [facility].; [employer]. Color (U) red Abnormal [employer] [facility].; [employer]. Laboratory - Urinalysison Glucose Test strip (U) [Mass/Vol] Negative Normal [facility].; [employer]. Leukocyte esterase Test strip Ql (U) small Abnormal [facility] [employer]; [employer]. Nitrite Ql (U) Positive Abnormal [facility] [employer].; [employer]. Protein Ql (U) 100 mg/dL Abnormal [facility].; [employer]. No Panel Informationon 10-16 CULTURE, URINE, ROUTINE SEE NOTE Abnormal [employer] [facility].; Sold. EMERGENCY REPORTon 2 EMERGENCY REPORT [facility] EMERGENCY ROOM REPORT NAME ACCOUNT SEX AGE ADMIT DISCHARGE PT MED. RECORD# NUMBER DATE DATE GERSON TOMAS [id number] M [id number] 08/24/22 08/24/22 3 JULIO CÉSAR Beasley [address] ROOM: ER DATE OF : 1970 DICTATING [...] Nichole Vazquez DO 08/24/22 18:14 JOB #: [id number] Transcribed By: acosta 08/25/22 16:39 Electronically signed by: Dr. Nichole Vazquez DO 08/30/22 13:30 Page 2 of 2 JULIO CÉSAR TOMAS Emergency Room Report Normal [facility] BMP with eGFRon 08-24-2022 AGE 52 years Normal [facility] Comment on above: Performed By: #### 2 88002 #### [facility],[address] [place] [address]28 Anion gap [Moles/Vol] 11 mmol/L Normal 10 - 20 [facility] Comment on above: Performed By: #### 2 16370 #### [facility],[address] [place] [address] 92410 BMP with eGFR Normal [facility] Comment on above: Result Comment: BASI C METABOLIC PANEL Performed By: #### 2 08868 #### [address] [address] Calcium [Mass/Vol] 9.0 mg/dL Normal 8.5 - 10.1 [facility] Comment on above: Performed By: #### 2 51328 #### [facility],[address] [place] [address] 84564 Chloride [Moles/Vol] 102 mmol/L Normal 98 - 107 [facility] Comment on above: Performed By: #### 2 61617 #### [facility],[address] [place] [address] 73490 CO2 [Moles/Vol] 26.8 mmol/L Normal 21.0 - 32.0 [facility] Comment on above: Performed By: #### 2 71826 #### [facility],[address] [place] [address] 06621 Creatinine [Mass/Vol] 1.16 mg/dL Normal 0.70 - 1.30 [facility] Comment on above: Performed By: #### 2 68300 #### [facility],[address] [place] [address]8555 GFR/1.73 sq M.predicted among non-blacks MDRD (S/P/Bld) [Vol rate/Area] mL/min/{1.73_m2} Normal 60 - 999 [facility] Comment on above: Performed By: #### 2 45436 #### [facility],[address] [place], [place] [address] Result Comment: ACCO RDING TO THE NATIONAL KIDNEY DISEASE EDUCATION PROGRAM(NKDE), A NORMAL eGFR IS A VALUE GREATER THAN OR EQUAL TO 60 ML/MIN/1.73 SQ METERS. CHRONIC KIDNEY DISEASE: <60mL/MIN/1.73 SQ METERS KIDNEY FAILURE: <15mL/MIN/1.73 SQ METERS THIS TEST SHOULD ONLY BE USED FOR PATIENTS 18 YEARS OF AGE AND OLDER. Glucose [Mass/Vol] 102 mg/dL Normal 74 - 106 [facility] Comment on above: Performed By: #### 2 50485 #### [facility],[address] [place] [address]64 Potassium [Moles/Vol] 3.5 mmol/L Normal 3.5 - 5.1 [facility] Comment on above: Performed By: #### 2 43929 #### [facility],[address] [place] [address] 71842 Sodium [Moles/Vol] 136 mmol/L Normal 136 - 145 [facility] Comment on above: Performed By: #### 2 54216 #### [facility],[address] [place] [address] 12881 Urea nitrogen [Mass/Vol] 19 mg/dL High 7 - 18 [facility] Comment on above: Performed By: #### 2 63288 #### [facility],[address] [place] [address] 23364 CBC + DIFF DAILYon 2 Baso # 0.00 x10EE3/UL Normal 0.00 - 0.10 [facility] Comment on above: Performed By: #### 2 99527 #### [facility],[address] [place] [address] 28652 Basophils/100 WBC (Bld) 0.5 % Normal 0.0 - 2.0 [facility] Comment on above: Performed By: #### 2 50739 #### [facility],[address] [place] [address] 74270 CBC + DIFF DAILY Normal [facility] Comment on above: Result Comment: CORRECTED REPORT CBC-COMPLETE BLOOD COUNT Performed By: #### 2 24656 #### [facility],[address] [place] [address] 91954 EO # 0.10 x10EE3/UL Normal 0.00 - 0.50 [facility] Comment on above: Performed By: #### 2 33619 #### [facility],[address] [place] [address] 22953 Eosinophils/100 WBC (Bld) 1.2 % Normal 0.0 - 7.0 [facility] Comment on above: Performed By: #### 2 26649 #### [facility],[address] [place] [address] ERROR DUE TO TECH Normal [facility] Comment on above: Performed By: #### 2 53281 #### [facility],[address] [place], [place] [address] Erythrocyte distribution width (RBC) [Ratio] 13.0 % Normal 12.0 - 15.6 [facility] Comment on above: Performed By: #### 2 86019 #### [facility],[address] [place] [address] Hematocrit (Bld) [Volume fraction] 46.0 % Normal 40.0 - 52.0 [facility] Comment on above: Performed By: #### 2 07346 #### [facility],[address] [place] [address] Hemoglobin (Bld) [Mass/Vol] 15.7 g/dL Normal 13.0 - 17.5 [facility] Comment on above: Performed By: #### 2 60645 #### [facility],[address] [place] [address] Lymph # 2.80 x10EE3/UL Normal 0.80 - 2.80 [facility] Comment on above: Performed By: #### 2 23677 #### [facility],[address] [place] [address] Lymphocytes/100 WBC (Bld) 37.6 % Normal 20.0 - 45.0 [facility] Comment on above: Performed By: #### 2 77561 #### [facility],[address] [place], [place] [phone] MANUAL DIFF N/A Normal [facility] Comment on above: Performed By: #### 2 07665 #### [facility],[address] [place], [place] [address] MCH (RBC) [Entitic mass] 33 pg Normal 27 - 33 [facility] Comment on above: Performed By: #### 2 27637 #### [facility],[address] [place] [address] MCHC 34 X10 3 Normal 32 - 36 [facility] Comment on above: Performed By: #### 2 30114 #### [facility],[address] [place] [address] MCV (RBC) [Entitic vol] 96 fL Normal 81 - 98 [facility] Comment on above: Performed By: #### 2 79998 #### [facility],[address] [place] [address] Island # 0.60 x10EE3/UL Normal 0.20 - 1.00 [facility] Comment on above: Performed By: #### 2 40499 #### [facility],[address] [place] [address] MONOS % 7.7 % Normal 0.0 - 10.0 [facility] Comment on above: Performed By: #### 2 21226 #### [facility],[address] [place] [address] Morphology Julian (Bld) [Interp] N/A Normal [facility] Comment on above: Result Comment: {CD] FOLLOWING [...] % 0.0 <-- *Previously reported in error [facility].KLS. .dxh8 .706-2 N#] Neut # 3.70 <-- *Previously reported in error 08/24/22.KLS. .dxh8 .751-8 M#] Island # 0.70 <-- *Previously reported in error [facility].KLS. .dxh8 .742-7 Performed By: #### 2 56776 #### [place] [id number] Neut # 3.90 x10EE3/UL Normal 1.50 - 7.10 [facility] Comment on above: Performed By: #### 2 60989 #### [facility],[address] [place] [address] Neutrophils/100 WBC (Bld) 53.0 % Normal 46.0 - 76.0 [facility] Comment on above: Performed By: #### 2 48792 #### [facility],[address] [place] [address]3581 PLATELET 195 x10EE3/UL Normal 150 - 450 [facility] Comment on above: Performed By: #### 2 08183 #### [facility],[address] [place] [address] 91048 Platelet mean volume (Bld) [Entitic vol] 9.3 fL Normal 6.4 - 10.5 [facility] Comment on above: Result Comment: AUTO MATED DIFFERENTIAL Performed By: #### 2 95497 #### [address] [address] RBC 4.79 x 10EE6/UL Normal 4.50 - 6.00 [facility] Comment on above: Performed By: #### 2 05363 #### [address] [address] WBC 7.3 x 10EE3/UL Normal 4.5 - 10.8 [facility] Comment on above: Performed By: #### 2 40421 #### [address] [address] CHEST 1 VIEWon 08-24-2022 CHEST 1 VIEW [place] [address] Patient: JULIO CÉSAR TOMAS Phone#: : 1970 Age: 52 Gender: M Pt. Type: ER Account: [id number] Location: [facility] Ordering: NICHOLE WELSHIK Exam Date: 08/24/2022/14:15 Family Phys: Charge Code: [id number] Physician: Guadalupe Order #: [id number] Dose#: PROCEDURE: X-RAY CHEST 1 VIEW COMPARISON: [...] Torres MD on 08/24/2022 at 14:[address] [facility] [address] BRAIN W/O CONTRASTon 11-1 CT BRAIN W/O CONTRAST [address] [address] Patient: JULIO CÉSAR TOMAS Phone#: : 1970 Age: 52 Gender: M Pt. Type: ER Account: [id number] Location: 052 Ordering: NICHOLE TAYLOR Exam Date: 08/24/2022/14:01 Family Phys: Charge Code: [id number] Physician: Guadalupe Order #: [id number] Dose#: PROCEDURE: CT BRAIN WITHOUT CONTRAST COMPARISON: [...] 2. Left frontal scalp soft tissue swelling [address] [address] Patient: JULIO CÉSAR TOMAS Phone#: : 1970 Age: 52 Gender: M Pt. Type: ER Account: [id number] Location: 052 Ordering: NICHOLE VAZQUEZ Exam Date: 08/24/2022/14:01 Family Phys: Charge Code: [id number] Physician: Guadalupe Order #: [id number] Dose#: Dictated by: Maryjo Torres MD on 08/24/2022 at 14:29 Approved by: Maryjo Torres MD on 08/24/2022 at 14:[address] [facility] [address] CERVICAL W/O CONTRASTon 1 10-24-2021 CT CERVICAL W/O CONTRAST [place] [address] Patient: JULIO CÉSAR TOMAS Phone#: : 1970 Age: 52 Gender: M Pt. Type: ER Account: [id number] Location: 052 Ordering: NICHOLE VAZQUEZ Exam Date: 08/24/2022/14:01 Family Phys: Charge Code: [id number] Physician: Guadalupe Order #: [id number] Dose#: PROCEDURE: CT CERVICAL WITHOUT CONTRAST COMPARISON: [...] 1. T1 left transverse process fracture, nondisplaced. [address] [address] Patient: JULIO CÉSAR TOMAS Phone#: : 1970 Age: 52 Gender: M Pt. Type: ER Account: [id number] Location: 052 Ordering: NICHOLE VAZQUEZ Exam Date: 08/24/2022/14:01 Family Phys: Charge Code: [id number] Physician: Guadalupe Order #: [id number] Dose#: Dictated by: Maryjo Torres MD on 08/24/2022 at 15:04 Approved by: Maryjo Torres MD on 08/24/2022 at 15:11 Normal [facility] SHOULDER COMPLETE LTon 08-24 SHOULDER COMPLETE LT [address] [address] Patient: JULIO CÉSAR TOMAS Phone#: : 1970 Age: 52 Gender: M Pt. Type: ER Account: [id number] Location: 052 Ordering: NICHOLE VAZQUEZ Exam Date: 08/24/2022/17:15 Family Phys: Charge Code: [id number] Physician: Guadalupe Order #: [id number] Dose#: PROCEDURE: X-RAY SHOULDER LT MIN 2 VIEWS COMPARISON: [facility], XR, SHOULDER LT, 08/24/2022, 14:17. INDICATIONS: Post [...] Torres MD on 08/24/2022 at 17:34 Normal [facility] SHOULDER COMPLETE LT [place] [address] Patient: JULIO CÉSAR TOMAS Phone#: : 1970 Age: 52 Gender: M Pt. Type: ER Account: [id number] Location: 052 Ordering: NICHOLE VAZQUEZ Exam Date: 08/24/2022/14:17 Family Phys: Charge Code: [id number] Physician: Guadalupe Order #: [id number] Dose#: PROCEDURE: X-RAY SHOULDER LT MIN 2 [...] Torres MD on 08/24/2022 at 14:29 Normal [facility] CORONAVIRUS PCR - [facility] 12-28-2021 SARS-CoV-2 (COVID-19) RNA ENZO+probe Ql (Unsp spec) Negative Normal NORMAL: NEGATIVE [facility] Comment on above: Performed By: #### 2 37143 #### [facility],[address] [place] [address] SEND TO IC? YES Normal [facility] Comment on above: Result Comment: RESU LTS FAXED TO INFECTION CONTROL. SARS-CoV-2 THIS TEST IS BEING USED UNDER THE FDA EUA PROCEDURE. THIS ASSAY HAS BEEN VALIDATED IN THE [facility] FOR USE WITH NASOPHARYNGEAL SPECIMENS [facility]. INTERPRETIVE DATA LABORATORY TEST RESULTS SHOULD ALWAYS [...] PUBLIC HEALTH AUTHORITIES. Performed By: #### 2 45941 #### [facility],[address] [place], [place] [id number] BMP with eGFRon 12-27-2021 AGE 51 years Normal [facility] Comment on above: Performed By: #### 2 22625 #### [facility],[address] [place] [address] Anion gap [Moles/Vol] 11 mmol/L Normal 10 - 20 [facility] Comment on above: Performed By: #### 2 99069 #### [address] [address] BMP with eGFR Normal [facility] Comment on above: Result Comment: BASI C METABOLIC PANEL Performed By: #### 2 05250 #### [facility],[address] [place] [address]25 Calcium [Mass/Vol] 8.6 mg/dL Normal 8.5 - 10.1 [facility] Comment on above: Performed By: #### 2 78811 #### [facility],[address] [place] [address] 6[address] Chloride [Moles/Vol] 108 mmol/L High 98 - 107 [facility] Comment on above: Performed By: #### 2 68659 #### [facility],[address] [place] [address]56 CO2 [Moles/Vol] 26.7 mmol/L Normal 21.0 - 32.0 [facility] Comment on above: Performed By: #### 2 51413 #### [facility],[address] [place], [place] [address] Creatinine [Mass/Vol] 1.19 mg/dL Normal 0.70 - 1.30 [facility] Comment on above: Performed By: #### 2 08508 #### [facility],[address] [place], [place] [address] GFR/1.73 sq M.predicted among non-blacks MDRD (S/P/Bld) [Vol rate/Area] mL/min/{1.73_m2} Normal 60 - 999 [facility] Comment on above: Performed By: #### 2 58260 #### [facility],[address] [place] [address]852 Result Comment: ACCO RDING TO THE NATIONAL KIDNEY DISEASE EDUCATION PROGRAM(NKDE), A NORMAL eGFR IS A VALUE GREATER THAN OR EQUAL TO 60 ML/MIN/1.73 SQ METERS. CHRONIC KIDNEY DISEASE: <60mL/MIN/1.73 SQ METERS KIDNEY FAILURE: <15mL/MIN/1.73 SQ METERS THIS TEST SHOULD ONLY BE USED FOR PATIENTS 18 YEARS OF AGE AND OLDER. Glucose [Mass/Vol] 88 mg/dL Normal 74 - 106 [facility] Comment on above: Performed By: #### 2 16446 #### [facility],[address] [place] [address] Potassium [Moles/Vol] 4.1 mmol/L Normal 3.5 - 5.1 [facility] Comment on above: Performed By: #### 2 83091 #### [facility],[address] [place] [address] 8[address]99 Sodium [Moles/Vol] 142 mmol/L Normal 136 - 145 [facility] Comment on above: Performed By: #### 2 87922 #### [facility],[address] [place] [address]471 Urea nitrogen [Mass/Vol] 18 mg/dL Normal 7 - 18 [facility] Comment on above: Performed By: #### 2 40501 #### [facility],[address] [place] [address] LIPID PROFILEon 12-27-2021 Cholesterol [Mass/Vol] 157 mg/dL Normal 0 - 240 [facility] Comment on above: Performed By: #### 2 33443 #### [facility],[address] [place] [address] 418[address] Cholesterol in HDL [Mass/Vol] 43 mg/dL Normal 40 - 60 [facility] Comment on above: Performed By: #### 2 44695 #### [facility],[address] [place] [address] 20944 Cholesterol in LDL [Mass/Vol] 82 mg/dL Normal 0 - 129 [facility] Comment on above: Performed By: #### 2 11064 #### [facility],[address] [place] [address] Cholesterol.total/C holesterol in HDL [Mass ratio] 3.7 {ratio} Normal 0.0 - 5.0 [facility] Comment on above: Performed By: #### 2 83684 #### [facility],[address] [place] [address]01 Lipid 1996 panel Normal [facility] Comment on above: Result Comment: LIPI D PROFILE Performed By: #### 2 27681 #### [facility],[address] [place] [address]28 Triglyceride [Mass/Vol] 161 mg/dL High 0 - 150 [facility] Comment on above: Performed By: #### 2 57876 #### [facility],[address] [place] [address] Coronavirus 2019on COVID 19 Result DOPE WEIGH OPERATOR Normal Negative for COVID19 (SARS CoV2) by PCR. [facility] Comment on above: Result Comment: Nega tive for This test was developed and its performance characteristics determined by [facility]'s [facility] [place]. This test has been authorized by FDA [...] developed and its performance characteristics determined by [facility] [place]. This test has been authorized by FDA [...] developed and its performance characteristics determined by [facility] [place]. This test has been authorized by FDA under an Emergency Use Authorization (EUA). This test has been validated in accordance with the FDA's Guidance Document Policy for Diagnostics Testing in Laboratories Certified to Perform High Complexity Testing under CLIA prior to Emergency use Authorization for Coronavirus Disease 2019 during the Public Health Emergency issued on December 07, 2019. COVID 19 Source DOPE WEIGH OPERATOR DOPE WEIGH OPERATOR Normal [facility] Vital Signs Date Time Vital Sign Value Performing Clinician Irish corrigan 04-25-2025 15:07-0400 Body height 182.88 cm Ashley Gonzalez LPN [facility], [facility]. 04-25-2025 15:07-0400 Body mass index (BMI) [Ratio] 31.06 kg/m2 Ashley Gonzalez GAME TESTER [facility]. 04-25-2025 15:07-0400 Body surface area Derived from formula 2.26 m2 Ashley Gonzalez [facility], [facility].; [facility] 04-25-2025 15:07-0400 Body temperature 99.5 [degF] Ashley Gonzalez [facility], [facility].; [employer] [facility] Comment on above: Method: Tympanic 04-25-2025 15:07-0400 Body weight 103.87 kg Ashley Gonzalez [facility], [facility]. 04-25-2025 15:07-0400 Diastolic blood pressure 74 mm[Hg] Ashley Gonzalez [facility], [facility].; [employer] [facility] Comment on above: Patient Position: Sitting; Cuff Location : Left Arm; Cuff Size: Standard 04-25-2025 15:07-0400 Heart rate 80 /min Ashley Gonzalez [facility] [employer] [facility] Comment on above: Pattern: Regular 04-25-2025 15:07-0400 Systolic blood pressure 116 mm[Hg] [facility].; [facility] Comment on above: Patient Position: Sitting; Cuff Location : Left Arm; Cuff Size: Standard 10-16-2023 09:32-0500 Body height 182.88 cm Consuelo Ocasio GAME TESTER [facility], [facility].; [facility], [facility]. 10-16-2023 09:32-0500 Body mass index (BMI) [Ratio] 30.24 kg/m2 Consuelo Ocasio [facility], [facility].; [facility], [facility]. 10-16-2023 09:32-0500 Body surface area Derived from formula 2.23 m2 Consuelo Ocasio GAME TESTER [facility], [facility].; [facility], [facility]. 10-16-2023 09:32-0500 Body temperature 99.8 [degF] Consuelo Ocasio [facility], [employer]. Comment on above: Method: Tympanic 10-16-2023 09:32-0500 Body weight 101.15 kg Consuelo Lyons Amarjit ALLEN [facility] 10-16-2023 09:32-0500 Diastolic blood pressure 82 mm[Hg] Consuelo Lyons Amarjit ALLEN [facility] [employer] Comment on above: Patient Position: Sitting; Cuff Location : Right Arm; Cuff Size: Standard 10-16-2023 09:32-0500 Heart rate 101 /min Consuelo Lyons Amarjit ALLEN [facility] [employer] Comment on above: Pattern: Regular 10-16-2023 09:32-0500 Systolic blood pressure 128 mm[Hg] Consuelo M Amarjit ALLEN [facility] [employer] Comment on above: Patient Position: Sitting; Cuff Location : Right Arm; Cuff Size: Standard 01-11-2023 08:51-0400 Body weight 100.25 kg Mark Greene LPN [facility] [employer] [facility] 01-11-2023 08:51-0400 Diastolic blood pressure 84 mm[Hg] Mark Greene LPN [facility] [employer] Comment on above: Patient Position: Sitting; Cuff Location : Left Arm; Cuff Size: Standard 01-11-2023 08:51-0400 Heart rate 87 /min Mark Greene LPN [facility] [employer], [employer]. Comment on above: Pattern: Regular 01-11-2023 08:51-0400 Systolic blood pressure 118 mm[Hg] Mark Greene LPN [facility] [employer]. Comment on above: Patient Position: Sitting; Cuff Location : Left Arm; Cuff Size: Standard 11-25-2020 14:38-0500 Body height 182.88 cm Judy Howe LPN [facility] [employer]. 11-25-2020 14:38-0500 Body mass index (BMI) [Ratio] 30.11 kg/m2 Judy Howe LPN [facility] [employer] [facility], [facility]. 11-25-2020 14:38-0500 Body surface area Derived from formula 2.23 m2 Judy Howe LPN [facility] [employer] 11-25-2020 14:38-0500 Body weight 100.7 kg Judy Howe LPN [facility] [employer] 11-25-2020 14:38-0500 Diastolic blood pressure 77 mm[Hg] Judy Howe LPN [facility], [facility] [employer], [employer]. Comment on above: Patient Position: Sitting; Cuff Location : Left Arm; Cuff Size: Standard 11-25-2020 14:38-0500 Heart rate 98 /min Judy Howe LPN [facility] [employer] Comment on above: Pattern: Regular 11-25-2020 14:38-0500 Systolic blood pressure 121 mm[Hg] Judy Howe LPN [facility] [employer], [employer]. Comment on above: Patient Position: Sitting; Cuff Location : Left Arm; Cuff Size: Standard 05-28-2019 08:21-0400 Body height 182.88 cm Judy Howe LPN [facility] [employer] 05-28-2019 08:21-0400 Body mass index (BMI) [Ratio] 29.7 kg/m2 Judy Howe LPN [facility] [employer] 05-28-2019 08:21-0400 Body surface area Derived from formula 2.21 m2 Judy Howe LPN [facility], [facility].; [employer], [employer]. 05-28-2019 08:21-0400 Body weight 99.34 kg Judy Howe LPN [place] [employer] [facility], [facility].; [employer], [employer]. 05-28-2019 08:21-0400 Diastolic blood pressure 86 mm[Hg] Judy Howe LPN [place] [employer] [facility] [employer], [employer]. Comment on above: Patient Position: Sitting; Cuff Location : Left Arm; Cuff Size: Standard 05-28-2019 08:21-0400 Heart rate 92 /min Judy Howe TIFFANY [place] [employer] [facility], [facility] [employer]. Comment on above: Pattern: Regular 05-28-2019 08:21-0400 Systolic blood pressure 125 mm[Hg] Judy Howe [employer]STER [place] [employer] [facility], [facility] [employer]. Comment on above: Patient Position: Sitting; Cuff Location : Left Arm; Cuff Size: Standard 11-27-2017 10:07-0500 Body height 182.88 cm [facility] [employer] [facility] [employer]. 11-27-2017 10:07-0500 Body mass index (BMI) [Ratio] 30.11 kg/m2 Mar Ash [facility] [employer] 11-27-2017 10:07-0500 Body surface area Derived from formula 2.23 m2 Mar Ash [employer] [place] [employer] [facility], [facility] [employer] 11-27-2017 10:07-0500 Body weight 100.7 kg [facility] [employer] [facility] [employer]. 11-27-2017 10:07-0500 Diastolic blood pressure 76 mm[Hg] [facility] [employer]. Comment on above: Patient Position: Sitting; Cuff Location : Left Arm; Cuff Size: Standard 11-27-2017 10:07-0500 Heart rate 87 /min Mar Ash LPN [place] [employer] [facility], [facility] [employer]. Comment on above: Pattern: Regular 11-27-2017 10:07-0500 Systolic blood pressure 120 mm[Hg] Mar Ash LPN [employer] Comment on above: Patient Position: Sitting; Cuff Location : Left Arm; Cuff Size: Standard 07-04-2016 16:22-0400 Body height 182.88 cm Radha Talbert [employer] [facility], [facility] [employer] 07-04-2016 16:22-0400 Body mass index (BMI) [Ratio] 29.84 kg/m2 Radha Talbert [employer] [facility] [employer] [facility], [facility]. 07-04-2016 16:22-0400 Body surface area Derived from formula 2.22 m2 Radha Gerber Talbert G[employer] TE[employer] [facility], [facility].; [place] [employer], [facility]. 07-04-2016 16:22-0400 Body weight 99.79 kg Radha Gerber Talbert LPN [facility], [facility].; [employer], [facility]. 07-04-2016 16:22-0400 Diastolic blood pressure 80 mm[Hg] Radha Gerber Talbert LPN [facility], [facility].; [employer], [employer]. Comment on above: Patient Position: Sitting; Cuff Location : Left Arm; Cuff Size: Large 07-04-2016 16:22-0400 Heart rate 85 /min Radhamazin Talbert [employer] [facility], [facility].; [employer], [employer]. Comment on above: Pattern: Regular 07-04-2016 16:22-0400 Systolic blood pressure 133 mm[Hg] Radha Gerber Talbert G[employer] TE[employer] [facility], [facility].; [employer], [employer]. Comment on above: Patient Position: Sitting; Cuff Location : Left Arm; Cuff Size: Large 07-27-2015 15:58-0400 Body height 182.88 cm Ceci Jeet Mutersbaugh G[employer] TE[employer] [facility], [facility].; [employer], [facility]. 07-27-2015 15:58-0400 Body mass index (BMI) [Ratio] 28.48 kg/m2 Ceci K Mutersbaugh G[employer] TE[employer] [facility], [facility].; [place] [employer], [facility]. 07-27-2015 15:58-0400 Body surface area Derived from formula 2.18 m2 Ceci K Mutersbaugh [employer] [place] [employer] [facility], [facility].; [employer], [employer]. 07-27-2015 15:58-0400 Body weight 95.26 kg Ceci K Mutersbaugh [employer] [place] [employer] [facility], [facility].; [employer], [employer]. 07-27-2015 15:58-0400 Diastolic blood pressure 80 mm[Hg] Ceci K Mutersbaugh G[employer] TE[employer] [facility], [facility].; [employer], [employer]. Comment on above: Patient Position: Sitting; Cuff Location : Left Arm; Cuff Size: Standard 07-27-2015 15:58-0400 Heart rate 90 /min Ceci Cardenasbaugh G[employer] TE[employer] [facility], [employer].; [employer]. Comment on above: Pattern: Regular 07-27-2015 15:58-0400 Systolic blood pressure 127 mm[Hg] Ceci Jeet Buchananersbaugh [employer] [facility] [employer], [employer]. Comment on above: Patient Position: Sitting; Cuff Location : Left Arm; Cuff Size: Standard 05-19-2014 08:04-0400 Body height 182.88 cm Consuelo Lyons [facility] [employer]. 05-19-2014 08:04-0400 Body mass index (BMI) [Ratio] 29.7 kg/m2 Consuelo Lyons [facility] [employer], [employer]. 05-19-2014 08:04-0400 Body surface area Derived from formula 2.21 m2 Consuelo [facility] [employer] [facility] [employer], [employer]. 05-19-2014 08:04-0400 Body weight 99.34 kg Consuelo M [facility] [employer] [facility], [employer].; [employer]. 05-19-2014 08:04-0400 Diastolic blood pressure 78 mm[Hg] Consuelo Felicianoach [facility] [employer] [facility] [employer]. Comment on above: Patient Position: Sitting; Cuff Location : Left Arm; Cuff Size: Standard 05-19-2014 08:04-0400 Heart rate 88 /min Consuelo Felicianoach [facility] [employer] [facility], [employer].; [employer]. Comment on above: Pattern: Regular 05-19-2014 08:04-0400 Systolic blood pressure 123 mm[Hg] Consuelo Felicianoach [facility] [employer] [facility], [employer].; [employer]. Comment on above: Patient Position: Sitting; Cuff Location : Left Arm; Cuff Size: Standard 02-09-2011 11:20-0400 Body height 180.34 cm Zachary Hutchinson PA-C Work Phone: [place] [employer]. 02-09-2011 11:20-0400 Body mass index (BMI) [Ratio] 27.2 kg/m2 Luke Jasper PA-C Work Phone: [employer]. 02-09-2011 11:20-0400 Body surface area Derived from formula 2.09 m2 Luke Jasper PA-C Work Phone: [employer].; [employer]. 02-09-2011 11:20-0400 Body weight 88.45 kg Luke Jasper PA-C Work Phone: [employer].; [employer]. 02-09-2011 11:20-0400 Diastolic blood pressure 74 mm[Hg] Luke Jasper PA-C Work Phone: [employer]; [employer]. Comment on above: Patient Position: Sitting; Cuff Location : Left Arm; Cuff Size: Large 02-09-2011 11:20-0400 Heart rate 96 /min Luke Jasper PA-C Work Phone: [employer]; [employer]. Comment on above: Pattern: Regular 02-09-2011 11:20-0400 Systolic blood pressure 111 mm[Hg] Luke Jasper PA-C Work Phone: [employer]; [employer]. Comment on above: Patient Position: Sitting; Cuff Location : Left Arm; Cuff Size: Large Encounters Encounter Date Encounter Type Care Provider Facility Start: 04-25-2025 End: 04-25-2025 Office outpatient visit 15 minutes Luke Jasper PA-C Work Phone: [employer] Start: 04-25-2025 Review Luke Hochstetl er PA-C Work Phone: [employer]. Start: 10-16-2023 End: 10-16-2023 Office outpatient visit 15 minutes Luke Jasper PA-C Work Phone: Sold. Start: 01-11-2023 End: 01-11-2023 Office outpatient visit 15 minutes Luke Jasper PA-C Work Phone: Sold. Start: 09-14-2022 End: 09-15-2022 ambulatory DARIA MANRIQUEZ [facility] Start: 08-24-2022 ambulatory ELIOT CANDELARIO [facility] Start: 08-24-2022 End: 08-24-2022 Emergency department patient visit NICHOLE PRABHAKARNJANDRE [facility] Start: 03-15-2022 End: 03-15-2022 Patient encounter procedure [facility] Start: 12-28-2021 End: 12-28-[address] [facility] Start: 12-27-2021 End: 12-27-2021 ambulatory RYAN BASS [facility] Start: 03-24-2021 End: 03-24-2021 Telephone follow-up Luke Jasper PA-C Work Phone: Sold. Start: 11-25-2020 End: 11-25-2020 Patient encounter procedure Luke Jasper PA-C Work Phone: [employer] Start: 05-28-2019 End: 05-28-2019 Office outpatient visit 15 minutes Luke Jasper PA-C Work Phone: Sold. Start: 11-27-2017 End: 11-27-2017 Office outpatient visit 15 minutes Luke Jasper PA-C Work Phone: [employer] Start: 07-04-2016 End: 07-05-2016 Patient encounter procedure Luke Jasper PA-C Work Phone: [employer] Start: 07-27-2015 End: 07-28-2015 Office outpatient visit 15 minutes Luke Jasper PA-C Work Phone: [employer] Start: 05-19-2014 End: 05-19-2014 Patient encounter procedure Zachary RichJasper PA-C Work Phone: [employer] Start: 12-05-2011 End: 12-05-2011 Medication Zachary Coyleetler PA-C Work Phone: [employer] Start: 02-09-2011 End: 02-09-2011 Patient encounter procedure Zachary Coyleetler PA-C Work Phone: [employer] Procedures Date Procedure Procedure Detail Performing Clinician Start: 10-16-2023 End: 10-16-2023 Ceftriaxone sodium injection Marjorie TO-C Work Phone: Start: 11-25-2020 End: 11-25-2020 Simple repair scalp/neck/ax/genit/trunk 2.5cm/< Chantal Barrientos MD Work Phone: Start: 11-27-2017 End: 11-27-2017 Body mass index documented Slim Manrique MD Work Phone: Plan of Treatment Date Care Activity Detail Author Start: 04-25-2025 Culture bacterial quanttative colony count urine Urine Culture ([id number]) Start: 25-Apr-2025 15:47-04:00 Request [employer]; [employer] Start: 04-25-2025 Ct abdomen & pelvis w/o contrst 1/> body re Abdomen/Pelvis CT W/O Contrast & W/ Contrast per protocol ([id number]) Start: 25-Apr-2025 Intent Comments: Call Asif Salinas at [facility] and call [employer]; [employer] Comment on above: Call Asif Salinas at [facility] - hold and call Payers Date Payer Category Payer Unknown [id number] 1970 Unknown [id number] 1970 Unknown [id number] Self-pay SELF PAY INSURANCE [id number] Unknown 197 Social History Date Type Detail Facility Tobacco smoking status NHIS Unknown if ever smoked [facility] Work Phone: Start: 1970 Sex Assigned At Male [facility] Work Phone: Caffeine Use Caffeine Use [employer]; [employer] Tobacco smoking consumption unknown [employer] [facility] [employer]; [employer] Work Phone: Evaluation note Note Date & Type Note Facility Evaluation note No assessment information availa ble [facility] Work Phone: Summary Purpose Family History No Family History Records FoundNo Family History Records Found Advance Directives No Advanced Directives Records FoundNo Advanced Directives Records Found Chief Complaint and Reason for Visit Chief Complaint AEROPHAGIA Additional Source Comments (unrecognized sect ion and content) No Status Records FoundNo Status Records Found INFORMATION SOURCE (unrecogn ized section and content) DATE CREATED AUTHOR 12/04/2020 [facility] DATE CREATED AUTHOR AUTHOR'S EDITH GREY 09/15/2022 [facility] Goals (unrecognized section and content) Goals may [...] BE BASED ON THE PRIMARY CLINICAL RECORDS. [employer] provides no warranty or guarantee of the accuracy or completeness of information in this document.
[2025-04-25 23:34] VITALS: BP 124/80; PULSE 80; RESP 16; TEMP 36.8; O2SAT 93
[2025-04-26 00:15] VITALS: BMI 31.0
[2025-04-26 00:21] VITALS: BP 125/82; PULSE 76; RESP 16; TEMP 36.7; O2SAT 95
[2025-04-26] MEDS: Dextrose 5%/0.9% NaCl 1,000 ML 110 ML IV ×3 (00:27→20:50)
[2025-04-26] MEDS: Piperacil/Tazobactam 3.375 GM in 0.9% Normal Saline (50mL MB+) 50 ML IV ×3 (04:41→20:52)
[2025-04-26 04:45] VITALS: BP 96/67; PULSE 68; RESP 16; TEMP 36.8; O2SAT 99
[2025-04-26 07:22] LABS: Hematocrit 38.1 % (40-54); Hemoglobin 13.4 g/dL (13.0-16.5); Immature Granulocytes Count 0.040 X10^3/uL (0.0-0.0); Mean Corp Hgb Conc 35.2 g/dL (32-36); Mean Corpuscular Volume 95.7 fL (80-94); Mean Platelet Vol. 10.6 fl (6.2-12.0); NRBC Flagged by Analyzer 0 % (0-5); Platelet Count 170 K/mm3 (150-450); RBC Distribution Width CV 12.3 % (11.6-14.6); RBC Distribution Width SD 43.5 fl (35.1-43.9); Red Blood Count 3.98 M/mm3 (4.6-6.2); White Blood Count 8.7 K/mm3 (4.4-11.0)
[2025-04-26 07:51] LABS: Anion Gap 11 (5-15); BUN 11 mg/dL (4-19); BUN/Creat Ratio 11.1 RATIO (10-20); Calcium,Total 9.0 mg/dL (7.6-11.0); Carbon Dioxide 22.6 mmol/L (21.0-32.0); Chloride 103 mmol/L (98-108); Estimated Creatinine Clearance 100.80 ml/min (50-250); Glucose 110 mg/dL (70-99); Potassium 3.8 mmol/L (3.3-5.1)
[2025-04-26 08:00] VITALS: BP 115/76; PULSE 71; RESP 15; TEMP 36.6; O2SAT 94
--- NOTE | 2025-04-26 10:22 | CASEMGMT ---
Dx:diverticulitis LACE:1 6-Clicks:24 Medical record reviewed and patient evaluated for identification of discharge planning needs. Based on this review, at this time criteria are not present to indicate a need for discharge planning. Will remain available to assist with discharge planning needs as identified or requested.
[2025-04-26 13:23] VITALS: BP 104/70; PULSE 70; RESP 15; TEMP 36.8; O2SAT 94
--- NOTE | 2025-04-26 13:27 | HP.PCM_ITS ---
HPI - General General Date of Admission: 04/25/25 Date of Service: 04/26/25 Chief Complaint: Left lower quadrant pain/diverticulitis HPI Narrative JULIO CÉSAR TOMAS, is a 54 M who presented to the emergency department at [facility] on April 25, 2025 with complaints of abdominal pain. Patient really has no significant past medical history other than a previous stroke in his 20s. Patient states that for the past 5 or 6 days he has been experiencing some left lower quadrant abdominal pain. He states that he has had similar pain in the past a few years. Patient underwent an outpatient CT scan through his PCP office. The CT scan showed sigmoid diverticulitis with a microperforation. There was no abscess. Clinically he was stable. He was advised by his PCP to present to [facility] emergency department for further evaluation and treatment. Patient denies any fevers or chills. He underwent laboratory evaluation and showed a white blood cell count of about 12,000. This has now decreased to around 8 or 9000 this morning. This morning he states that he is feeling quite good and really having minimal if any abdominal pain. In discussing this further with the patient it sounds as though he may have had 2 or 3 episodes of diverticulitis in the past 2 or 3 years. He never sought medical treatment for these episodes and they resolved spontaneously within a few days. This episode was more significant in terms of pain and did not resolve after a few days as his previous attacks had done. He has never had a colonoscopy. He does have a family history of colon cancer. [facility] Medical History (Updated 04/26/25 @ 13:[address] Deven Gandara MD) Perforation of sigmoid colon due to diverticulitis UTI (urinary tract infection) CVA (cerebral vascular accident) Diverticulitis Home Medications ?Medication ?Instructions ?Recorded ?Last Taken ?Type aspirin 25 mg-dipyridamole 200 mg 1 cap PO BID 5 Unknown History capsule,ext.release 12 hr multiphase Allergy/AdvReac Type Severity Reaction Status Date / Time No Known Allergies Allergy Verified 04/25/25 20:45 Surgical History no surgical history Social History Smoking Status: Never smoker ROS Constitutional Constitutional: Reports systems reviewed and no addt'l complaints, except as documented Eyes Eyes: Reports systems reviewed and no addt'l complaints, except as documented ENT HEENT: Reports systems reviewed and no addt'l complaints, except as documented Cardiovascular Cardiovascular: Reports systems reviewed and no addt'l complaints, except as documented Respiratory/Chest Respiratory/Chest: Reports systems reviewed and no addt'l complaints, except as documented Gastrointestinal Gastrointestinal: Reports systems reviewed and no addt'l complaints, except as documented Genitourinary Genitourinary: Reports systems reviewed and no addt'l complaints, except as documented Vital Signs Vital Signs Vital Signs: 04/25/25 20:45 04/25/25 22:45 04/25/25 23:34 Temperature 98.7 F 98.3 F Temperature Source Oral Pulse Rate 99 84 80 Pulse Strength Respiratory Rate 16 18 16 Blood Pressure 118/82 H 130/83 H 124/80 H Blood Pressure Mean 94 98 94 Blood Pressure Source Blood Pressure Position Blood Pressure Location Pulse Ox 95 93 93 Oxygen Delivery Method Room Air Room Air 04/26/25 00:21 04/26/25 04:45 04/26/25 08:00 Temperature 98.1 F 98.2 F 97.8 F Temperature Source Oral Oral Temporal Pulse Rate 76 68 71 Pulse Strength Respiratory Rate 16 16 15 Blood Pressure 125/82 H 96/67 115/76 Blood Pressure Mean 96 76 89 Blood Pressure Source Monitor Monitor Monitor Blood Pressure Position Semi-Fowlers Semi-Fowlers Semi-Fowlers Blood Pressure Location Right Arm Left Arm Left Arm Pulse Ox 95 99 94 Oxygen Delivery Method Room Air Room Air Room Air 04/26/25 08:33 04/26/25 13:23 Temperature 98.3 F Temperature Source Temporal Pulse Rate 70 Pulse Strength Normal (2+) Respiratory Rate 15 Blood Pressure 104/70 Blood Pressure Mean 81 Blood Pressure Source Monitor Blood Pressure Position Semi-Fowlers Blood Pressure Location Left Arm Pulse Ox 94 Oxygen Delivery Method Room Air Weight Weight: 222 lb 7.143 oz Body Mass Index (BMI) 31.0 Results Lab / Micro Data 04/26/25 06:06 04/26/25 06:06 Labs: Laboratory Results - last 24 hr 04/25/25 22:03: WBC 11.9 H, RBC 4.46 L, Hgb 14.8, Hct 42.0, MCV 94.2 H, MCH 33.2 H, MCHC 35.2, RDW Std Deviation 42.7, RDW Coeff of Mari 12.3, Plt Count 187, MPV 10.1, Immature Gran % (Auto) 0.300, Neut % (Auto) 73.6 H, Lymph % (Auto) 16.[address] L, [place] % (Auto) 8.7, Eos % (Auto) 0.7, Baso % (Auto) 0.3, Absolute Neuts (auto) 8.7 H, Absolute Lymphs (auto) 1.94, Nucleated RBC % 0, Sodium 134, Potassium 3.7, Chloride 99, Carbon Dioxide 21.4, Anion Gap 14, BUN 13, Creatinine 1.00, Estim Creat Clear Calc 100.55, Est GFR (MDRD) Non-Af 89, BUN/Creatinine Ratio 13.3, Glucose 95, Calcium 9.6, Total Bilirubin 0.89, AST 42 H, ALT 67 H, Alkaline Phosphatase 101, Total Protein 7.8, Albumin 4.3, Globulin 3.5, Albumin/Globulin Ratio 1.2, Lipase 14 04/26/25 06:06: WBC 8.7, RBC 3.98 L, Hgb 13.4, Hct 38.1 L, MCV 95.7 H, MCH 33.7 H, MCHC 35.2, RDW Std Deviation 43.5, RDW Coeff of Mari 12.3, Plt Count 170, MPV 10.6, Immature Gran % (Auto) 0.500, Neut % (Auto) 72.8 H, Lymph % (Auto) 16.[address], [address] % (Auto) 8.9, Eos % (Auto) 1.5, Baso % (Auto) 0.3, Absolute Neuts (auto) 6.3, Absolute Lymphs (auto) 1.39, Nucleated RBC % 0, Sodium 136, Potassium 3.8, Chloride 103, Carbon Dioxide 22.6, Anion Gap 11, BUN 11, Creatinine 0.99, Estim Creat Clear Calc 100.80, Est GFR (MDRD) Non-Af 89, BUN/Creatinine Ratio 11.1, G lucose 110 H, Calcium 9.0 Assessment & Plan Assessment/Plan (1) Perforation of sigmoid colon due to diverticulitis: PLAN: Plan The patient is a 54-year-old male admitted with acute sigmoid diverticulitis with a microperforation. Clinically he is doing much better on IV antibiotics. His white count has returned to normal this morning. I am recommending advancing his diet to a clear liquid diet. I suspect he could be ready for discharge tomorrow. He will likely go home with oral antibiotics for a week. He has never had a colonoscopy and I highly advised him to undergo a colonoscopy but would recommend waiting about 8 weeks prior to doing so to allow the diverticulitis to heal. Patient is agreeable to this. All questions and concerns were addressed during today's visit. Will reevaluate again tomorrow. Charges/Coding Visit Charges Inpatient E&M: 19952 Init Hosp L3
[2025-04-26 18:00] VITALS: BP 120/83; PULSE 65; RESP 14; TEMP 36.8; O2SAT 96
[2025-04-26 20:41] VITALS: BP 123/86; PULSE 70; RESP 16; TEMP 36.6; O2SAT 96
[2025-04-26] MEDS: Heparin Injection (Vial) 5,000 UNIT/ML VIAL 5000 UNIT SC (20:52)
[2025-04-27 01:28] VITALS: BP 98/64; PULSE 66; RESP 16; TEMP 36.6; O2SAT 96
[2025-04-27] MEDS: Piperacil/Tazobactam 3.375 GM in 0.9% Normal Saline (50mL MB+) 50 ML IV ×2 (05:41→12:57)
[2025-04-27] MEDS: Dextrose 5%/0.9% NaCl 1,000 ML 110 ML IV (05:44)
[2025-04-27 05:46] VITALS: BP 107/65; PULSE 65; RESP 16; TEMP 36.6; O2SAT 97
[2025-04-27 08:00] VITALS: BP 106/76; PULSE 68; RESP 14; TEMP 36.4; O2SAT 95
[2025-04-27] MEDS: Heparin Injection (Vial) 5,000 UNIT/ML VIAL 5000 UNIT SC (08:51)
[2025-04-27] MEDS: 0.9% Saline Lock 10 ML Syringe IV (10:45)
[2025-04-27 14:00] VITALS: BP 110/70; PULSE 63; RESP 14; TEMP 36.6; O2SAT 95
--- NOTE | 2025-04-27 14:31 | PCM.DC.SUM ---
Providers Date of Admission: 04/25/25 Date of Discharge: 04/27/25 Primary Care Physician: YOUSUF Edwards Reason For Visit: DIVERTICULITIS Diagnosis Discharge Diagnosis (1) Perforation of sigmoid colon due to diverticulitis: Status: Acute Code(s): K57.20 - Diverticulitis of large intestine with perforation and abscess without bleeding Plan The patient is a 54-year-old male admitted with acute sigmoid diverticulitis with a microperforation. Clinically he is doing much better on IV antibiotics. His white count has returned to normal this morning. I am recommending advancing his diet to a clear liquid diet. I suspect he could be ready for discharge tomorrow. He will likely go home with oral antibiotics for a week. He has never had a colonoscopy and I highly advised him to undergo a colonoscopy but would recommend waiting about 8 weeks prior to doing so to allow the diverticulitis to heal. Patient is agreeable to this. All questions and concerns were addressed during today's visit. Will reevaluate again tomorrow. Medications at Discharge Home Medications aspirin 25 mg-dipyridamole 200 mg capsule,ext.release 12 hr multiphase 1 cap PO BID 04/25/25 amoxicillin 500 mg-potassium clavulanate 125 mg tablet (Augmentin) 1 tab PO Q12H 7 days #14 tabs 04/27/25 Hospital Course Operations None Summary of Care Provided Minutes Spent on Discharge: 15 Hospital Course: The patient is a 54-year-old male who has a history of previous episodes of diverticulitis although not officially documented or ever treated medically as these episodes seem to have resolved spontaneously without treatment. Patient however presented to the hospital with several day history of abdominal pain. He was found to have sigmoid diverticulitis with a microperforation. He was subsequently admitted for IV antibiotics. He tolerated this very well and complains of no significant abdominal pain at this point. He has been advanced on diet. Anticipate discharge to home with oral antibiotics today. We did discuss need for colonoscopy in about 8 weeks as he has never had a colonoscopy and does have a family history of colon cancer. He is agreeable to this Physical Exam Narrative Abdomen is soft, nontender and nondistended. Const oriented x3 and no apparent distress Weight / BMI Weight Weight: 222 lb 7.143 oz Body Mass Index (BMI) 31.0 ABG / Lab / Microbiology Data 04/26/25 06:06 04/26/25 06:06 D/C Instructions Discharge Activity: May Shower Call your doctor if you observe: - (Any return of previous left lower quadrant abdominal pain) DC O2, CPAP, BIPAP Needs Home O2 Discharge instructions: No DC home with Oxygen: No Please Follow Up With: Deven Gandara MD When: 2 weeks Meaningful Use Info Meaningful Use Meaningful Use Diagnoses (Choose all that apply): None applicable Discharge Plan Admission Admit Date/Time: 04/25/25 23:22 Primary Reason for Your Visit: Diverticulitis with microperforation Attending Provider: Deven Gandara Primary Care Provider: Marjorie Salinas Discharge Orders/Prescriptions Prescriptions: New amoxicillin-pot clavulanate [Augmentin] 500-125 mg tablet 1 tab PO Q12H 7 Days Qty: 14 0RF Continued aspirin-dipyridamole 25-200 mg capsule, ER multiphase 12 hr 1 cap PO BID Referrals / Follow Up: Marjorie Salinas PA [Primary Care Provider] - Disposition Disposition (needs filled in before D/C Order can be placed): Home, Self Care
== END 2025-04-27 15:18 | disposition home or self-care (01) | DRG 392 ==
LOC: ED 23:24 → MS3 23:31
PROVIDERS: Admitting Provider Surgery; Emergency Provider Surgery; PCP Physician Assistant; Visit Provider Surgery
DX: K57.20 Diverticulitis of large intestine with perforation and abscess without bleeding (principal); Z79.82 Long term (current) use of aspirin; Z80.0 Family history of malignant neoplasm of digestive organs
CPT/HCPCS: 36415; 80048; 80053; 83690; 85025; 99284; A4216